=== PATIENT | female | born 1995 | race Hispanic/Latino ===

== ENCOUNTER 2016-10-21 21:34 | Emergency (ER) | payer BC ==
[2016-10-21 21:34] VITALS: BMI 22.3
[2016-10-21 21:41] VITALS: RESP 18; TEMP 98.8
--- NOTE | 2016-10-21 21:55 | ED PDOC ---
Arrival/HPI - General Chief Complaint: Substance Abuse Time Seen by Provider: 10/21/16 21:35 Historian: Patient - History of Present Illness Narrative History of Present Illness (Text): 10/21/16 21:51 Jenny Smith is a 20 year old female who presents to the emergency department via EMS for possible substance abuse. When asked, patient states " she fell asleep waiting for the bus after taking 1 percocet tablet." Currently denies any suicidal or homicidal ideation. Denies any fever, chills, headache, dizziness, chest pain, shortness of breath, nausea, vomiting, diarrhea, or any other complaints at this time. Time/Duration: 1-3 hours Symptom Onset: Gradual Symptom Course: Unchanged Activities at Onset: Light Context: Other (Bus stop ) Past Medical History - Provider Review Nursing Documentation Reviewed: Yes - Cardiac Hx Cardiac Disorders: No Hx Hypertension: No - Pulmonary Hx Respiratory Disorders: No Hx Tuberculosis: No - Neurological Hx Neurological Disorder: No HX Cerebrovascular Accident: No Hx Seizures: No - HEENT Hx HEENT Disorder: No - Renal Hx Renal Disorder: No - Endocrine/Metabolic Hx Endocrine Disorders: No - Hematological/Oncological Hx Blood Disorders: No Hx Cancer: No - Integumentary Hx Dermatological Disorder: No - Musculoskeletal/Rheumatological Hx Musculoskeletal Disorders: No Hx Falls: No - Gastrointestinal Hx Gastrointestinal Disorders: No - Genitourinary/Gynecological Hx Genitourinary Disorders: No Hx Sexually Transmitted Diseases: No - Psychiatric Hx Psychophysiologic Disorder: No Hx Depression: No Hx Emotional Abuse: No Hx Physical Abuse: No Hx Substance Use: Yes (Heroin (opiates)) - Suicidal Assessment Feels Threatened In Home Enviroment: No Family/Social History - Physician Review Nursing Documentation Reviewed: Yes Family/Social History: No Known Family HX Smoking Status: Light Smoker < 10 Cigarettes Daily Hx Alcohol Use: Yes Hx Substance Use: Yes (Heroin (opiates)) Hx Substance Use Treatment: No Allergies/Home Meds Allergies/Adverse Reactions: Allergies No Known Allergies Allergy (Verified 07/04/16 12:34) Review of Systems - Physician Review All systems were reviewed & negative as marked: Yes - Review of Systems Constitutional: Normal. absent: Fatigue, Fevers Respiratory: Normal. absent: SOB, Cough, Sputum Cardiovascular: Normal. absent: Chest Pain, Palpitations Gastrointestinal: Normal. absent: Abdominal Pain, Diarrhea, Nausea, Vomiting Psychiatric: Other (possible substance abuse ). absent: Suicidal Ideation Physical Exam Vital Signs Reviewed: Yes Vital Signs Temp Pulse Resp BP Pulse Ox 10/22/16 00:41 70 18 97/57 L 98 10/21/16 21:38 98.8 F 91 H 18 106/72 100 Temperature: Afebrile Blood Pressure: Normal Pulse: Regular Respiratory Rate: Normal Appearance: Positive for: Well-Appearing, Non-Toxic, Comfortable Pain Distress: None Mental Status: Positive for: Alert and Oriented X 3 - Systems Exam Head: Present: Atraumatic, Normocephalic Pupils: Present: PERRL Extroacular Muscles: Present: EOMI Conjunctiva: Present: Normal Mouth: Present: Moist Mucous Membranes Neck: Present: Normal Range of Motion Respiratory/Chest: Present: Clear to Auscultation, Good Air Exchange. No: Respiratory Distress, Accessory Muscle Use Cardiovascular: Present: Regular Rate and Rhythm, Normal S1, S2. No: Murmurs Abdomen: Present: Normal Bowel Sounds. No: Tenderness, Distention, Peritoneal Signs Upper Extremity: Present: Normal Inspection. No: Cyanosis, Edema Lower Extremity: Present: Normal Inspection. No: Edema Neurological: Present: GCS=15, CN II-XII Intact, Motor Func Grossly Intact, Normal Sensory Function. No: Speech Normal (slurred speech ) Skin: Present: Warm, Dry, Normal Color. No: Rashes Psychiatric: Present: Alert, Oriented x 3. No: Suicidal Ideation, Homicidal Ideation Medical Decision Making ED Course and Treatment: 10/21/16 22:04 Impression: A 20 year old female who presents to the emergency department s/p possible substance abuse. Plan: -- EKG -- Labs, cardiac enzymes -- Drug Screen -- Alcohol level -- IV fludis -- Urinalysis -- Reassess and disposition Progress Notes: 10/21/16 22:08 EKG reviewed by me: NSR @ 97 bpm with sinus arrhythmia. Rightward axis. 10/22/16 02:12 Patient is alert, awake and oriented X3. Patient wants to sign out against medical advice. I advised the patient to stay the course of treatment, but states she is aware of the risks of leaving against medical advice and is adamant in her decision. Advised to present to the emergency department for new/worsening symptoms and follow up with PMD within few days. Leaving Against Medical Advice (AMA): The patient is choosing to leave against medical advice. I have personally explained to the patient that choosing to do so may result in permanent bodily harm or . I have discussed at great length that without further evaluation and monitoring there may be unforeseen circumstances and/or deterioration causing permanent bodily harm or as a result of their choice. The patient is alert, oriented, and shows the mental capacity to make clear decisions regarding the patients health care at this time. The patient continues to wish to leave against medical advice. The patient has been advised that they should return to the emergency room immediately if they change their mind at any time, or if their condition begins to change or worsen in any way.. - Lab Interpretations Microbiology Results: Microbiology Results 10/22/16 00:20 Blood Blood Culture - Preliminary NO GROWTH AFTER 24 HOURS 10/21/16 23:40 Blood Blood Culture - Preliminary NO GROWTH AFTER 24 HOURS Lab Results: 10/21/16 22:25 10/21/16 22:25 Lab Results 10/22/16 00:20: Lactic Acid 1.9 10/21/16 22:50: pO2 195 H, VBG pH 7.32, VBG pCO2 51.0, VBG HCO3 26.3, VBG Total CO2 27.9, VBG O2 Sat (Calc) 99.9 H, VBG Base Excess -0.3 L, VBG Potassium 4.1, Glucose 134 H, Lactate 1.8, FiO2 21.0, Sodium 136.0, Chloride 106.0, Venous Blood Potassium 4.1 10/21/16 22:50: Urine Opiates Screen Negative, Urine Methadone Screen Negative, Ur Barbiturates Screen Negative, Ur Phencyclidine Scrn Negative, Ur Amphetamines Screen Negative, U Benzodiazepines Scrn Positive H, U Oth Cocaine Metabols Negative, U Cannabinoids Screen Positive H 10/21/16 22:50: Urine Color Yellow, Urine Appearance Sl cloudy, Urine pH 6.0, Ur Specific [place] >= 1.030, Urine Protein 100 H, Urine Glucose (UA) Negative, Urine Ketones Negative, Urine Blood Negative, Urine Nitrate Negative, Urine Bilirubin Negative, Urine Urobilinogen 0.2, Ur Leukocyte Esterase Negative, Urine RBC 0 - 2, Urine WBC 2 - 5, Ur Epithelial Cells 3 - 4, Urine Bacteria Small 10/21/16 22:25: Acetaminophen < 10.0 L 10/21/16 22:25: Alcohol, Quantitative < 10 10/21/16 22:25: Sodium 136, Potassium 3.9, Chloride 101, Carbon Dioxide 23, Anion Gap 16, BUN 15, Creatinine 0.6, Est GFR ( Amer) > 60, Est GFR (Non- Af Amer) > 60, Random Glucose 141 H, Calcium 8.9, Phosphorus 5.7 H, Magnesium 1.9, Total Bilirubin 0.2, AST 53 H, ALT 53, Alkaline Phosphatase 83, Lactate Dehydrogenase 621, Total Creatine Kinase 57, Troponin I 0.03 D, Total Protein 6.8, Albumin 3.8, Globulin 3.0, Albumin/Globulin Ratio 1.3 10/21/16 22:25: WBC 19.3 H D, RBC 3.63, Hgb 10.9 L, Hct 33.7 L, MCV 92.8, MCH 30.0, MCHC 32.3, RDW 13.7, Plt Count 655 H, MPV 8.8, Neutrophils % (Manual) 83 H , Band Neutrophils % 4 H, Lymphocytes % (Manual) 7 L, Monocytes % (Manual) 3, Eosinophils % (Manual) 2, Basophils % (Manual) 1, Platelet Evaluation High - RAD Interpretation Radiology Orders: 10/21/16 23:18 CHEST PORTABLE [RAD] Stat - Medication Orders Current Medication Orders: Discontinued Medications Cholecalciferol (Vitamin D) 2,000 iu PO DAILY [facility] Folic Acid (Folic Acid) 1 mg PO DAILY [facility] Heparin Sodium (Porcine) (Heparin) 5,000 units SC Q8H EARL PRN Reason: Protocol Last Admin: 10/22/16 00:23 Dose: 5,000 units Sodium Chloride (Sodium Chloride 0.9%) 1,000 mls @ 80 mls/hr IV .[id number] EARL Last Admin: 10/21/16 22:16 Dose: 80 mls/hr Sodium Chloride (Sodium Chloride 0.9%) 1,000 mls @ 100 mls/hr IV .Q10H EARL Stop: 10/26/16 03:44 Last Admin: 10/22/16 00:18 Dose: 100 mls/hr Piperacillin Sod/Tazobactam Sod (Zosyn 3.375 In Ns 100ml) 100 mls @ 200 mls/hr IVPB STAT STA PRN Reason: Protocol Stop: 10/22/16 00:35 Last Admin: 10/22/16 00:25 Dose: 200 mls/hr Naloxone HCl (Narcan) 0.4 mg IVP STAT STA Stop: 10/21/16 22:06 Last Admin: 10/21/16 22:30 Dose: Not Given Non-Admin Reason: Patient Refused Nicotine (Nicoderm Cq) 1 patch TD DAILY EAR[facility] Pantoprazole Sodium (Protonix Ec Tab) 40 mg PO 629 EARL Thiamine HCl (Vitamin B1 Tab) 100 mg PO DAILY [facility]AR[facility] - Scribe Statement The provider has reviewed the documentation as recorded by the Katarinaibe Syd Morrell Provider Attestation: All medical record entries made by the Katarinaibjos were at my direction and personally dictated by me. I have reviewed the chart and agree that the record accurately reflects my personal performance of the history, physical exam, medical decision making, and the department course for this patient. I have also personally directed, reviewed, and agree with the discharge instructions and disposition. Disposition/Present on Arrival - Present on Arrival Any Indicators Present on Arrival: No History of DVT/PE: No History of Uncontrolled Diabetes: No Urinary Catheter: No History of Decub. Ulcer: No History Surgical Site Infection Following: None - Disposition Have Diagnosis and Disposition been Completed?: Yes Diagnosis: Substance abuse, Sepsis Disposition: AGAINST MEDICAL ADVICE Disposition Time: 02:15 Condition: FAIR Discharge Instructions (ExitCare): Sepsis (ED) Referrals: Riley Justice MD [Primary Care Provider] - Follow up with primary
[2016-10-21] MEDS ORDERED: Sodium Chloride 0.9% 1,000 ML IV SCH ×2 (22:00→23:45)
[2016-10-21] MEDS: Naloxone 0.4 mg/ml Inj (Adult) IVP STA ×2 (22:16→22:30)
[2016-10-21 22:37] LABS: HEMATOCRIT 33.7 % (36.0-48.0); MEAN CELL VOLUME 92.8 fL (80.0-105.0); MEAN CORPUSCULAR HGB CONC 32.3 g/dl (31.0-37.0); MEAN PLATELET VOLUME 8.8 fl (7.0-11.0); PLATELET COUNT 655 10^3/uL (120.0-450.0); RED CELL DISTRIBUTION WIDTH 13.7 % (11.5-14.5); WHITE BLOOD COUNT 19.3 10^3/ul (4.5-11.0)
[2016-10-21 22:41] LABS: ADD MANUAL DIFF? YES
[2016-10-21 22:50] LABS: ALB/GLOB RATIO 1.3 (1.1-1.8); ALKALINE PHOSPHATASE 83 U/L (38-133); ALT/SGPT 53 U/L (7-56); AST/SGOT 53 U/L (15-39); BILIRUBIN,TOTAL 0.2 mg/dL (0.2-1.3); BLOOD UREA NITROGEN 15 mg/dL (7-21); CALCIUM 8.9 mg/dL (8.4-10.5); CARBON DIOXIDE 23 mmol/L (21-33); CHLORIDE 101 mmol/L (98-107); GFR AFRICAN-AMERICAN > 60; GLUCOSE,RANDOM 141 mg/dL (70-110); MAGNESIUM 1.9 mg/dL (1.7-2.2); PHOSPHOROUS 5.7 mg/dL (2.5-4.5); POTASSIUM 3.9 mmol/L (3.6-5.0); SODIUM 136 mmol/L (132-148); TOTAL PROTEIN 6.8 g/dL (5.8-8.3)
[2016-10-21 23:00] LABS: TROPONIN I 0.03 ng/mL
[2016-10-21 23:15] LABS: VENOUS BLOOD GAS BASE EXCESS -0.3 mmol/L (0.0-2.0); VENOUS BLOOD PH 7.32 (7.32-7.43)
[2016-10-21 23:47] LABS: URINE BILIRUBIN NEGATIVE (NEGATIVE); URINE BLOOD NEGATIVE (NEGATIVE); URINE GLUCOSE (UA) NEGATIVE (NEGATIVE); URINE KETONE NEGATIVE (NEGATIVE); URINE LEUKOCYTE ESTERASE NEGATIVE Leu/uL (NEGATIVE); URINE PROTEIN 100 mg/dL (<30 mg/dL); URINE UROBILINOGEN 0.2 E.U./dL (<1 E.U./dL)
[2016-10-21 23:55] LABS: URINE APPEARANCE SL CLOUDY (CLEAR); URINE COLOR YELLOW (YELLOW)
[2016-10-22 00:05] LABS: URINE BACTERIA SMALL (NEG); URINE RBC 0 - 2 /hpf (0-2)
[2016-10-22] MEDS ORDERED: Piperacillin/Tazobact 3.375 gm 100 ML IVPB STA (00:06)
[2016-10-22 00:27] LABS: BAND 4 % (0-2); NEUTROPHIL 83 % (50.0-70.0)
[2016-10-22 00:28] LABS: BASOPHIL 1 % (0.0-1.0); EOSINOPHIL 2 % (0.0-3.0); PLATELET ESTIMATE HIGH (NORMAL)
[2016-10-22 00:45] VITALS: BP 97/57; PULSE 70; O2SAT 98
[2016-10-22] MEDS ORDERED: Pantoprazole 40 mg EC Tab PO SCH (06:30)
--- NOTE | 2016-10-22 08:51 | RAD ---
HISTORY: weak COMPARISON: No prior. FINDINGS: LUNGS: No active pulmonary disease. PLEURA: No significant pleural effusion identified, no pneumothorax apparent. CARDIOVASCULAR: Normal. OSSEOUS STRUCTURES: No significant abnormalities. VISUALIZED UPPER ABDOMEN: Normal. OTHER FINDINGS: None. IMPRESSION: No active disease.
--- NOTE | 2016-10-22 22:46 | CARD ---
APPROVED REPORT EKG Measurement Heart [id number] <Conclusion> Normal sinus rhythm with sinus arrhythmia Rightward axis Borderline ECG
== END 2016-10-22 01:20 | disposition left against medical advice (07) ==
LOC: ED 21:34
DX: F19.10 Other psychoactive substance abuse, uncomplicated (principal); A41.9 Sepsis, unspecified organism
CPT/HCPCS: 71010; 80053; 81001; 82550; 82803; 83605; 83615; 83735; 84100; 84484; 85025; 87040; 93005; 96372; 99284; G0480; J1644; J2543; J7040

== ENCOUNTER 2017-09-09 23:43 | Emergency (ER) | payer BC ==
[2017-09-09 23:44] VITALS: BMI 22.3
[2017-09-10] MEDS ORDERED: Oxycodone/Acetaminophen 5/325 mg Tab PO STA (00:35)
--- NOTE | 2017-09-10 00:39 | ED PDOC ---
Arrival/HPI - General Historian: Patient <Maria E Chew A - Last Filed: 09/10/17 00:36> <Abdulaziz Petty - Last Filed: 09/10/17 01:11> - General Chief Complaint: Dental Pain Time Seen by Provider: 09/10/17 00:34 - History of Present Illness Narrative History of Present Illness (Text): 09/10/17 00:36 21yo female with no PMHx who present to ED with right sided upper toothache with facial swelling. Patient notes that toothache started this morning and swelling started this evening. States she had tooth extraction on the left side few week ago and took a left over oxycodone and penicillin from the procedure today with some relieve. she denies fever, chills, trauma. States she plan to see her Dentist in the morning. (Maria E Chew) Past Medical History - Provider Review Nursing Documentation Reviewed: Yes - Infectious Disease Hx of Infectious Diseases: None - Cardiac Hx Cardiac Disorders: No Hx Hypertension: No - Pulmonary Hx Respiratory Disorders: No Hx Tuberculosis: No - Neurological Hx Neurological Disorder: No HX Cerebrovascular Accident: No Hx Seizures: No - HEENT Hx HEENT Disorder: No - Renal Hx Renal Disorder: No - Endocrine/Metabolic Hx Endocrine Disorders: No - Hematological/Oncological Hx Blood Disorders: No Hx Cancer: No - Integumentary Hx Dermatological Disorder: No - Musculoskeletal/Rheumatological Hx Musculoskeletal Disorders: No Hx Falls: No - Gastrointestinal Hx Gastrointestinal Disorders: No - Genitourinary/Gynecological Hx Genitourinary Disorders: No Hx Sexually Transmitted Diseases: No - Psychiatric Hx Psychophysiologic Disorder: No Hx Depression: No Hx Emotional Abuse: No Hx Physical Abuse: No Hx Substance Use: Yes (Heroin (opiates)) - Suicidal Assessment Feels Threatened In Home Enviroment: No <Maria E Chew A - Last Filed: 09/10/17 00:36> Family/Social History - Physician Review Nursing Documentation Reviewed: Yes Family/Social History: Unknown Family HX Smoking Status: Light Smoker < 10 Cigarettes Daily Hx Alcohol Use: Yes Hx Substance Use: Yes (Heroin (opiates)) Hx Substance Use Treatment: No <Maria E Chew A - Last Filed: 09/10/17 00:36> Allergies/Home Meds <Maria E Chew A - Last Filed: 09/10/17 00:36> <Abdulaziz Petty - Last Filed: 09/10/17 01:11> Allergies/Adverse Reactions: Allergies No Known Allergies Allergy (Verified 07/04/16 12:34) Review of Systems - Physician Review All systems were reviewed & negative as marked: Yes - Review of Systems Constitutional: Normal Eyes: Normal ENT: Other (Toothache) Respiratory: Normal Cardiovascular: Normal Gastrointestinal: Normal Genitourinary Female: Normal Musculoskeletal: Normal Skin: Normal Neurological: Normal Endocrine: Normal Hemo/Lymphatic: Normal Psychiatric: Normal <Maria E Chew A - Last Filed: 09/10/17 00:36> Physical Exam Vital Signs Reviewed: Yes Temperature: Afebrile Blood Pressure: Normal Pulse: Regular Respiratory Rate: Normal Appearance: Positive for: Well-Appearing, Non-Toxic, Comfortable Pain Distress: None Mental Status: Positive for: Alert and Oriented X 3 - Systems Exam Head: Present: Atraumatic, Normocephalic Pupils: Present: PERRL Extroacular Muscles: Present: EOMI Conjunctiva: Present: Normal Mouth: Present: Moist Mucous Membranes. No: Normal Teeth (Poor dentition in general. Right sided upper lateral gum swelling noted with mild overlaying cheek swelling.) Neck: Present: Normal Range of Motion Respiratory/Chest: Present: Clear to Auscultation, Good Air Exchange. No: Respiratory Distress, Accessory Muscle Use Cardiovascular: Present: Regular Rate and Rhythm, Normal S1, S2. No: Murmurs Abdomen: No: Tenderness, Distention, Peritoneal Signs Back: Present: Normal Inspection Upper Extremity: Present: Normal Inspection. No: Cyanosis, Edema Lower Extremity: Present: Normal Inspection. No: Edema Neurological: Present: GCS=15, CN II-XII Intact, Speech Normal Skin: Present: Warm, Dry, Normal Color. No: Rashes Psychiatric: Present: Alert, Oriented x 3, Normal Insight, Normal Concentration <Maria E Chew A - Last Filed: 09/10/17 00:36> - Medication Orders Current Medication Orders: Discontinued Medications Amoxicillin (Amoxil 500 Mg Cap) 500 mg PO STAT STA PRN Reason: Protocol Stop: 09/10/17 00:35 Last Admin: 09/10/17 00:57 Dose: 500 mg Ibuprofen (Motrin Tab) 600 mg PO STAT STA Stop: 09/10/17 00:36 Last Admin: 09/10/17 00:59 Dose: 600 mg MAR Pain/Vitals Document 09/10/17 00:59 SS (Rec: 09/10/17 00:59 [id number]) Pain Reassessment Is This A Pain ReAssessment? No Sleep Is patient sleeping during reassessment? No Presence of Pain Presence of Pain Yes Pain Scale Used Pain Scale Used Numeric Location Left, Right or Bilateral Right Upper or Lower Lower Pain Location Body Site Face Oxycodone/Acetaminophen (Percocet 5/325 Mg Tab) 1 tab PO STAT STA Stop: 09/10/17 00:36 Last Admin: 09/10/17 00:59 Dose: 1 tab MAR Pain Assessment Document 09/10/17 00:59 SS (Rec: 09/10/17 00:59 SS [id number]) Pain Reassessment Is this a pain reassessment? No Sleep Is patient sleeping during reassessment? No Presence of Pain Presence of Pain Yes Pain Scale Used Pain Scale Used Numeric Location Left, Right or Bilateral Right Upper or Lower Lower Pain Location Body Site Face - PA / [employer] / Resident Statement / has reviewed & agrees with the documentation as recorded. <Abdulaziz Petty - Last Filed: 09/10/17 01:11> Disposition/Present on Arrival - Present on Arrival Any Indicators Present on Arrival: No History of DVT/PE: No History of Uncontrolled Diabetes: No Urinary Catheter: No History of Decub. Ulcer: No History Surgical Site Infection Following: None - Disposition Have Diagnosis and Disposition been Completed?: Yes Disposition Time: 00:40 Patient Plan: Discharge <Maria E Chew - Last Filed: 09/10/17 00:36> <Abdulaziz Petty - Last Filed: 09/10/17 01:11> - Disposition Diagnosis: Dental abscess Disposition: HOME/ ROUTINE Condition: STABLE Discharge Instructions (ExitCare): Tooth Abscess (DC) Additional Instructions: Follow up with your Dentist Return to ED for any new or worsening symptoms Prescriptions: Amoxicillin 875 mg PO TID #21 tab Ibuprofen [Motrin Tab] 600 mg PO Q6 #15 tab traMADol [Ultram] 50 mg PO TID #10 tab Referrals: [facility] [Outside] - Follow up with primary Forms: [employer] (Faroese)
[2017-09-10 03:48] VITALS: PULSE 78; RESP 20; TEMP 98.8; O2SAT 98
== END 2017-09-10 04:01 | disposition home or self-care (01) ==
LOC: ED 23:43
DX: K04.7 Periapical abscess without sinus (principal); F17.210 Nicotine dependence, cigarettes, uncomplicated

== ENCOUNTER 2018-02-11 11:16 | Emergency (ER) | payer BC, MEDICAID ==
[2018-02-11 12:01] VITALS: BMI 21.1
[2018-02-11 12:04] VITALS: RESP 18; TEMP 98.5
--- NOTE | 2018-02-11 13:07 | ED PDOC ---
Arrival/HPI - General Chief Complaint: Dental Pain Time Seen by Provider: 02/11/18 12:24 Historian: Patient - History of Present Illness Narrative History of Present Illness (Text): 02/11/18 13:35 22yr old female presents today with left sided dental pain and swelling. pt with hx of poor dentition c/o pain and swelling to the left lower molars that started upon awakening today. pt denies fever/chills. no trismus or drooling. no dizziness or weakness. no medications have been taken at home. 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 no other complaints. Severity Level: Mild Past Medical History - Provider Review Nursing Documentation Reviewed: Yes - Travel History Have you recently traveled outside [place] w/in the past 3 mons?: No - Infectious Disease Hx of Infectious Diseases: None - Cardiac Hx Cardiac Disorders: No Hx Hypertension: No - Pulmonary Hx Respiratory Disorders: No Hx Tuberculosis: No - Neurological Hx Neurological Disorder: No HX Cerebrovascular Accident: No Hx Seizures: No - HEENT Hx HEENT Disorder: No - Renal Hx Renal Disorder: No - Endocrine/Metabolic Hx Endocrine Disorders: No - Hematological/Oncological Hx Blood Disorders: No Hx Cancer: No Hx Hepatitis A: Yes Hx Hepatitis C: Yes - Integumentary Hx Dermatological Disorder: No - Musculoskeletal/Rheumatological Hx Musculoskeletal Disorders: No Hx Falls: No - Gastrointestinal Hx Gastrointestinal Disorders: No - Genitourinary/Gynecological Hx Sexually Transmitted Diseases: No Other/Comment: genital herpes - Psychiatric Hx Psychophysiologic Disorder: No Hx Depression: No Hx Emotional Abuse: No Hx Physical Abuse: No Hx Substance Use: Yes (recovering) Other/Comment: substanc eabuse - recovery - Surgical History Other/Comment: - Suicidal Assessment Feels Threatened In Home Enviroment: No Family/Social History - Physician Review Nursing Documentation Reviewed: Yes Family/Social History: Unknown Family HX Smoking Status: Light Smoker < 10 Cigarettes Daily Hx Alcohol Use: Yes Hx Substance Use: Yes (recovering) Hx Substance Use Treatment: No Allergies/Home Meds Allergies/Adverse Reactions: Allergies No Known Allergies Allergy (Verified 07/04/16 12:34) Home Medications: Home Meds Medication Instructions Recorded Confirmed Buprenorphine HCl/Naloxone HCl 16 mg SL DAILY 02/11/18 02/11/18 [Suboxone 8 mg-2 mg Sl Film] Review of Systems - Review of Systems Constitutional: absent: Fatigue, Fevers ENT: Other (dental pain) Respiratory: absent: SOB, Cough Cardiovascular: absent: Chest Pain, Palpitations Gastrointestinal: absent: Abdominal Pain, Nausea, Vomiting Genitourinary Female: absent: Dysuria Musculoskeletal: absent: Arthralgias Skin: absent: Rash, Pruritis Neurological: absent: Headache, Dizziness Psychiatric: absent: Anxiety, Depression Physical Exam Vital Signs Reviewed: Yes Vital Signs Temp Pulse Resp BP Pulse Ox 02/11/18 12:03 98.5 F 72 18 118/90 100 Temperature: Afebrile Blood Pressure: Normal Pulse: Regular Respiratory Rate: Normal Appearance: Positive for: Well-Appearing, Non-Toxic, Comfortable Pain Distress: None Mental Status: Positive for: Alert and Oriented X 3 - Systems Exam Head: Present: Other ( swelling noted to left lower cheek) Conjunctiva: Present: Normal Ears: Present: Normal, NORMAL TM Mouth: Present: Moist Mucous Membranes, Normal Lips, Normal Tounge. No: Drooling, Trismus, Normal Teeth (multiple dental fracture, + left lower dental tenderness, + swelling noted to left lower cheek) Pharnyx: Present: Normal. No: ERYTHEMA, EXUDATE, TONSILS ENLARGED, Peritonsilar Swelling, Uvular Deviation, Muffled/Hoarse Voice, Soft Palate/Uvular Edema Nose (External): Present: Atraumatic Nose (Internal): Present: Normal Inspection Neck: Present: Normal Range of Motion, Trachea Midline. No: Lymphadenopathy Respiratory/Chest: Present: Clear to Auscultation, Good Air Exchange. No: Respiratory Distress, Accessory Muscle Use Cardiovascular: Present: Regular Rate and Rhythm, Normal S1, S2. No: Murmurs Neurological: Present: GCS=15, Speech Normal Skin: Present: Warm, Dry, Normal Color. No: Rashes Psychiatric: Present: Alert, Oriented x 3 Medical Decision Making ED Course and Treatment: 02/11/18 15:04 Patient is nontoxic well-appearing in no distress with stable vital signs No trismus or drooling, moist mucous membranes motrin clindamycin po I advised follow-up with the dentist within the next 2 days. I advised immediate return is symptoms worsen persist or if new concerning symptoms develop Patient verbalizes understanding of discharge instructions and need for imm ediate followup. Impression: Toothache, dental abscess Motrin every 6 hours as needed for pain Clindamycin 1 tablet 3 times daily 7 days Follow-up with the dentist within the next 2 days Follow up with the primary care physician within the next 2 days Return immediately if symptoms worsen persist or if new concerning symptoms develop: high fevers, increasing pain, swelling, or if any other concerning symptoms develop. [facility] [address] [phone] [place] [address] [phone] Disposition/Present on Arrival - Present on Arrival Any Indicators Present on Arrival: No History of DVT/PE: No History of Uncontrolled Diabetes: No Urinary Catheter: No History of Decub. Ulcer: No History Surgical Site Infection Following: None - Disposition Have Diagnosis and Disposition been Completed?: Yes Diagnosis: Dental abscess Disposition: HOME/ ROUTINE Disposition Time: 12:30 Patient Plan: Discharge Condition: GOOD Discharge Instructions (ExitCare): Tooth Abscess (DC) Additional Instructions: Motrin every 6 hours as needed for pain Clindamycin 1 tablet 3 times daily 7 days Follow-up with the dentist within the next 2 days Follow up with the primary care physician within the next 2 days Return immediately if symptoms worsen persist or if new concerning symptoms develop: high fevers, increasing pain, swelling, or if any other concerning symptoms develop. [address] [phone] [place] [address] [phone] Prescriptions: Clindamycin [Cleocin] 300 mg PO TID #21 cap Ibuprofen [Motrin] 600 mg PO Q6H PRN #20 tab PRN Reason: pain/fever reduction Referrals: Abdullahi Barney DMD [Staff Provider] - Follow up with primary Rashid Valdes DMD [Non-Staff] - Follow up with primary Forms: [employer] (Japanese), WORK NOTE
[2018-02-11 14:04] VITALS: BP 118/76; PULSE 78; O2SAT 100
== END 2018-02-11 13:55 | disposition home or self-care (01) ==
LOC: ED 11:16
DX: K04.7 Periapical abscess without sinus (principal)

== ENCOUNTER 2018-05-12 15:06 | Observation (INO) | payer MEDICAID, OTHER ==
[2018-05-12 15:16] VITALS: BMI 21.9
--- NOTE | 2018-05-12 15:58 | ED PDOC ---
Arrival/HPI - General Chief Complaint: Abdominal Pain Time Seen by Provider: 05/12/18 15:30 Historian: Patient - History of Present Illness Narrative History of Present Illness (Text): 05/12/18 16:03 A 22 year old female, whose past medical history includes pancreatitis, presents to the emergency department complaining of abdominal pain. Patient reports she has been in recovery for her pancreatitis. Also she has been 100 days sober. Since recovery, patient has been experiencing abdominal pain, and has waited 3 months for pain to absolve, however has had no relief and states pain is now unbearable. Patient denies any fever, vomiting, back pain, or any other complaints at this time. Mentions she smokes weed. Has no surgical history. No PMD Past Medical History - Provider Review Nursing Documentation Reviewed: Yes - Infectious Disease Hx of Infectious Diseases: None - Cardiac Hx Cardiac Disorders: No Hx Hypertension: No - Pulmonary Hx Respiratory Disorders: No Hx Tuberculosis: No - Neurological Hx Neurological Disorder: No HX Cerebrovascular Accident: No Hx Seizures: No - HEENT Hx HEENT Disorder: No - Renal Hx Renal Disorder: No - Endocrine/Metabolic Hx Endocrine Disorders: No - Hematological/Oncological Hx Blood Disorders: No Hx Cancer: No Hx Hepatitis A: Yes Hx Hepatitis C: Yes - Integumentary Hx Dermatological Disorder: No - Musculoskeletal/Rheumatological Hx Musculoskeletal Disorders: No Hx Falls: No - Gastrointestinal Hx Gastrointestinal Disorders: No Other/Comment: Pancreatitis - Genitourinary/Gynecological Hx Sexually Transmitted Diseases: No Other/Comment: genital herpes - Psychiatric Hx Psychophysiologic Disorder: No Hx Depression: No Hx Emotional Abuse: No Hx Physical Abuse: No Hx Substance Use: Yes (Marijuana) Other/Comment: substanc eabuse - recovery - Surgical History Other/Comment: - Suicidal Assessment Feels Threatened In Home Enviroment: No Family/Social History - Physician Review Nursing Documentation Reviewed: Yes Family/Social History: No Known Family HX Smoking Status: Light Smoker < 10 Cigarettes Daily Hx Alcohol Use: Yes Frequency of alcohol use: Socially Hx Substance Use: Yes (Marijuana) Hx Substance Use Treatment: No Allergies/Home Meds Allergies/Adverse Reactions: Allergies No Known Allergies Allergy (Verified 07/04/16 12:34) Home Medications: Home Meds Medication Instructions Recorded Confirmed Buprenorphine HCl/Naloxone HCl 16 mg SL DAILY 02/11/18 02/11/18 [Suboxone 8 mg-2 mg Sl Film] Review of Systems - Physician Review All systems were reviewed & negative as marked: Yes - Review of Systems Constitutional: Other (weakness). absent: Fevers Gastrointestinal: Abdominal Pain (burning sensation). absent: Vomiting Musculoskeletal: absent: Back Pain Physical Exam - Physical Exam Narrative Physical Exam (Text): Gen: NAD, cooperative, well appearing, non-toxic. Head: NCAT. HEENT: EYES: PERRL, EOMI, conjunctiva clear, MOUTH: dry MM and pink, posterior pharynx without erythema or exudate, uvula midline. CV: (+) S1S2, RRR, no M/G/R LUNGS: CTA B/L, No W/R/R, good air movement Abd: mild tenderness to epigastric region, NTTP, no guarding, rebound or rigidity, hyperactive bowel sounds. Neuro: AAO x 3, GCS 15, CN 2-12 intact, motor and sensory grossly intact, 5/5 muscle strength B/L UE's and LE's. ext: no cyanosis or edema Vital Signs Reviewed: Yes Vital Signs Temp Pulse Resp BP Pulse Ox 05/12/18 15:15 98.4 F 73 18 102/69 97 Temperature: Afebrile Blood Pressure: Normal Pulse: Regular Respiratory Rate: Normal Appearance: Positive for: Well-Appearing, Non-Toxic, Comfortable Pain Distress: None Mental Status: Positive for: Alert and Oriented X 3 Medical Decision Making ED Course and Treatment: 05/12/18 16:04 Impression: 22 year old female with abdominal pain. Plan: -- Labs -- Urinalysis -- POC Urine Test -- Reassess and disposition Progress Notes: 05/12/18 16:06 Upon blood being drawn, patient became diaphoretic, and became sinus tod at the high 30s. Patient denies any chest pain/shortness of breath. 05/12/18 17:36 Blood pressure currently 97/72 and heart rate improved to 65 BPM. 05/12/18 17:[address] Wilkerson, who accepts patient to be placed under admission in tele-obs. Chest X-ray is negative. - Scribe Statement The provider has reviewed the documentation as recorded by the Candice Douglas Provider Scribe Attestation: All medical record entries made by the Scribe were at my direction and personally dictated by me. I have reviewed the chart and agree that the record accurately reflects my personal performance of the history, physical exam, medical decision making, and the department course for this patient. I have also personally directed, reviewed, and agree with the discharge instructions and disposition. Disposition/Present on Arrival - Present on Arrival Any Indicators Present on Arrival: No History of DVT/PE: No History of Uncontrolled Diabetes: No Urinary Catheter: No History of Decub. Ulcer: No History Surgical Site Infection Following: None - Disposition Have Diagnosis and Disposition been Completed?: Yes Diagnosis: Symptomatic bradycardia Disposition: HOSPITALIZED Disposition Time: 17:55 Patient Plan: Admission, Telemetry Patient Problems: Current Active Problems Problem Status Onset Symptomatic bradycardia Acute Condition: STABLE
[2018-05-12] MEDS ORDERED: Sodium Chloride 0.9% 1,000 ML IV STA (16:07)
[2018-05-12 16:33] LABS: BASO # 0.02 K/mm3 (0.0-2.0); BASO % 0.2 % (0.0-3.0); EOS # 0.2 (0.0-0.7); GRAN # 4.67 (1.4-6.5); GRAN % 54.1 % (50.0-68.0); HEMOGLOBIN 12.3 g/dL (12.0-16.0); LYMPH # 3.5 (1.2-3.4); LYMPH % 40.1 % (22.0-35.0); MEAN CELL VOLUME 85.7 fl (80.0-105.0); MEAN CORPUSCULAR HEMOGLOBIN 28.3 pg (25.0-35.0); MEAN CORPUSCULAR HGB CONC 33.1 g/dl (31.0-37.0); MEAN PLATELET VOLUME 9.2 fl (7.0-11.0); MONO # 0.3 (0.1-0.6); MONO % 3.6 % (1.0-6.0); RBC 4.34 10^6/uL (3.5-6.1); RED CELL DISTRIBUTION WIDTH 14.1 % (11.5-14.5); WHITE BLOOD COUNT 8.6 10^3/uL (4.5-11.0)
[2018-05-12 16:44] LABS: URINE BILIRUBIN NEGATIVE (NEGATIVE); URINE BLOOD TRACE-INTACT (NEGATIVE); URINE GLUCOSE (UA) NEGATIVE (NEGATIVE); URINE LEUKOCYTE ESTERASE NEGATIVE Leu/uL (NEGATIVE); URINE PROTEIN NEGATIVE mg/dL (<30 mg/dL); URINE UROBILINOGEN 0.2 E.U./dL (<1 E.U./dL)
[2018-05-12 16:46] LABS: URINE APPEARANCE CLEAR (CLEAR); URINE COLOR YELLOW (YELLOW)
[2018-05-12 17:05] LABS: URINE EPITHELIAL CELLS MANY /hpf (0-5); URINE RBC 0 - 2 /hpf (0-2); URINE WBC 0 - 2 /hpf (0-6)
[2018-05-12 17:06] LABS: URINE BACTERIA TRACE /hpf
[2018-05-12 17:08] LABS: ALB/GLOB RATIO 1.4 (1.1-1.8); ALBUMIN 4.1 g/dL (3.0-4.8); ALT/SGPT 50 U/L (7-56); AST/SGOT 36 U/L (14-36); BLOOD UREA NITROGEN 6 mg/dL (7-21); CALCIUM 9.3 mg/dL (8.4-10.5); GFR NON-AFRICAN AMERICAN > 60; LIPASE 11 U/L (23-300)
[2018-05-12 17:09] LABS: ACETAMINOPHEN < 10.0 ug/ml (10.0-20.0); SALICYLATE < 1 mg/dL (2.0-20.0)
[2018-05-12 17:21] LABS: BENZODIAZEPINES, UR NEGATIVE (NEGATIVE)
[2018-05-12 17:23] LABS: BARBITURATES, UR NEGATIVE (NEGATIVE); OPIATES, UR NEGATIVE (NEGATIVE); PHENCYCLIDINE, UR NEGATIVE (NEGATIVE)
[2018-05-12 17:30] LABS: TROPONIN I < 0.01 ng/mL
[2018-05-12] MEDS: Sodium Chloride 0.9% 1,000 ML IV SCH (21:26)
--- NOTE | 2018-05-12 22:00 | CP.PCM.HP ---
<Meaghan Lincoln - Last Filed: 05/13/18 00:25> Meds Allergies/Adverse Reactions: Allergies Allergy/AdvReac Type Severity Reaction Status Date / Time No Known Allergies Allergy Verified 07/04/16 12:34 Results - Vital Signs Recent Vital Signs: Last Vital Signs Temp 98.4 F 05/12/18 15:15 Pulse 52 L 05/12/18 20:23 Resp 16 05/12/18 20:23 BP 107/65 05/12/18 20:00 Pulse Ox 100 05/12/18 20:23 - Labs Result Diagrams: 05/12/18 16:25 05/12/18 16:25 Labs: Laboratory Results - last 24 hr 05/12/18 05/12/18 05/12/18 16:12 16:25 16:25 WBC 8.6 RBC 4.34 Hgb 12.3 Hct 37.2 MCV 85.7 MCH 28.3 MCHC 33.1 RDW 14.1 Plt Count 277 MPV 9.2 Gran % 54.1 Lymph % (Auto) 40.1 H [place] % (Auto) 3.6 Eos % (Auto) 2.0 Baso % (Auto) 0.2 Gran # 4.67 Lymph # (Auto) 3.5 H [place] # (Auto) 0.3 Eos # (Auto) 0.2 Baso # (Auto) 0.02 Sodium Potassium Chloride Carbon Dioxide Anion Gap BUN Creatinine Est GFR ( Amer) Est GFR (Non-Af Amer) POC Glucose (mg/dL) 94 Random Glucose Calcium Phosphorus Magnesium Total Bilirubin AST ALT Alkaline Phosphatase Troponin I Total Protein Albumin Globulin Albumin/Globulin Ratio Lipase Urine Color Yellow Urine Appearance Clear Urine pH 7.0 Ur Specific Cam[place] 1.020 Urine Protein Negative Urine Glucose (UA) Negative Urine Ketones Negative Urine Blood Trace-intact H Urine Nitrate Negative Urine Bilirubin Negative Urine Urobilinogen 0.2 Ur Leukocyte Esterase Negative Urine RBC 0 - 2 Urine WBC 0 - 2 Ur Epithelial Cells Many H Urine Bacteria Trace Salicylates Urine Opiates Screen Urine Methadone Screen Acetaminophen Ur Barbiturates Screen Ur Phencyclidine Scrn Ur Amphetamines Screen U Benzodiazepines Scrn U Oth Cocaine Metabols U Cannabinoids Screen Alcohol, Quantitative 05/12/18 05/12/18 05/12/18 16:25 16:25 16:25 WBC RBC Hgb Hct MCV MCH MCHC RDW Plt Count MPV Gran % Lymph % (Auto) [place] % (Auto) Eos % (Auto) Baso % (Auto) Gran # Lymph # (Auto) [place] # (Auto) Eos # (Auto) Baso # (Auto) Sodium 138 Potassium 4.5 Chloride 108 H Carbon Dioxide 25 Anion Gap 10 BUN 6 L Creatinine 0.4 L Est GFR ( Amer) > 60 Est GFR (Non-Af Amer) > 60 POC Glucose (mg/dL) Random Glucose 109 Calcium 9.3 Phosphorus Magnesium 2.0 Total Bilirubin 0.3 AST 36 ALT 50 Alkaline Phosphatase 89 Troponin I < 0.01 D Total Protein 7.2 Albumin 4.1 Globulin 3.0 Albumin/Globulin Ratio 1.4 Lipase 11 L Urine Color Urine Appearance Urine pH Ur Specific [place] Urine Protein Urine Glucose (UA) Urine Ketones Urine Blood Urine Nitrate Urine Bilirubin Urine Urobilinogen Ur Leukocyte Esterase Urine RBC Urine WBC Ur Epithelial Cells Urine Bacteria Salicylates < 1 L Urine Opiates Screen Negative Urine Methadone Screen Negative Acetaminophen < 10.0 L Ur Barbiturates Screen Negative Ur Phencyclidine Scrn Negative Ur Amphetamines Screen Negative U Benzodiazepines Scrn Negative U Oth Cocaine Metabols Negative U Cannabinoids Screen Positive H Alcohol, Quantitative 05/12/18 05/12/18 16:25 22:37 WBC RBC Hgb Hct MCV MCH MCHC RDW Plt Count MPV Gran % Lymph % (Auto) [place] % (Auto) Eos % (Auto) Baso % (Auto) Gran # Lymph # (Auto) [place] # (Auto) Eos # (Auto) Baso # (Auto) Sodium Potassium Chloride Carbon Dioxide Anion Gap BUN Creatinine Est GFR ( Amer) Est GFR (Non-Af Amer) POC Glucose (mg/dL) Random Glucose Calcium Phosphorus 3.3 Magnesium 1.9 Total Bilirubin AST ALT Alkaline Phosphatase Troponin I < 0.01 Total Protein Albumin Globulin Albumin/Globulin Ratio Lipase Urine Color Urine Appearance Urine pH Ur Specific [place] Urine Protein Urine Glucose (UA) Urine Ketones Urine Blood Urine Nitrate Urine Bilirubin Urine Urobilinogen Ur Leukocyte Esterase Urine RBC Urine WBC Ur Epithelial Cells Urine Bacteria Salicylates Urine Opiates Screen Urine Methadone Screen Acetaminophen Ur Barbiturates Screen Ur Phencyclidine Scrn Ur Amphetamines Screen U Benzodiazepines Scrn U Oth Cocaine Metabols U Cannabinoids Screen Alcohol, Quantitative < 10 Attending/Attestation - Attestation I have personally seen and examined this patient.: Yes I have fully participated in the care of the patient.: Yes I have reviewed all pertinent clinical information: Yes Notes (Text): 05/13/18 00:27 22 year old woman of . [facility] #16. Patient was seen when she was in . Medical record was reviewed. Agree with history, physical examination, assessment and plan with some inclusion and exclusion. This 22 year old woman is admitted with CC: Abdominal pain. Nausea. Symptomtic bradycardia. Urine -blood trace. Urine -Cnnabinoids + ve. PMH: Hepatitis A Hepatitis C IVDA. Anxiety. Depression. Suicidal thoughts history, not presently thinking. Cellulitis. Sepsis. Septic arthritis-left elbow. Dental abscess. Substance abuse.-Heroine. ETOH abuse. History alcohlic seizure. Tobacco dependence. Painful menstruation. I & D left elbow abscess. History of anemia. History borderline diabetes mellitus. History GERD. History chronic pancreatitis. History D&C. HOME MEDS: Thiamine 100 mg PO daily. Motrin 600 mg PO Q6H prn Folic acid mg PO daily Cleocin 300 mg PO TID Soboxone / Naloxone 8mg -2 mg SL Daily. Plan: As per orders, CT ABD/P, cardiology,GI consult. <Claudia Goodwin - Last Filed: 05/13/18 02:24> History of Present Illness - History of Present Illness History of Present Illness: Claudia Goodwin, PGY-1, Internal Medicine History and Physical for Dr. Lincoln 22 year old female with past medical history of pancreatitis 1 year ago, resolved hepatitis A, resolved hepatitis C, history of heroin abuse, history of tobacco abuse, history of alcohol abuse, current marijuana use presents with burning substernal pain that has worsened for the past 3 months that is exacerbated with food intake and improved with marijuana. Pain started 1 year ago after patient had an episode of pancreatitis after drinking 1/5 of vodka daily for 4 months. Patient reports nausea but has had no episodes of vomiting. Patient has had a 10 pound weight loss in the past month and has had a loss of appetite during that time as well. Patient denies constipation, diarrhea, fever, dysuria, hematuria, vaginal bleeding. Patient's last menstrual period was at the end of April and has had heavier and more painful menstrual periods in the past 3 months. During patient's stay in the ER, patient had blood drawn, during which patient became diaphoretic and nauseous and became sinus bradycardic in the 30s. Patient reports that she clenched her jaw and could not blink at this time but was fully aware of the events transpiring. Patient did not have any e pisode of tongue biting, loss of urination or loss of bowel movement at that time. 12-point ROS was unremarkable except for what was mentioned above. PMH: as mentioned above PSH: in 2011 FMHx: pancreatitis SHx: 1/5 of alcohol a day for 4 months prior to pancreatitis episode 1 year ago. Patient drank socially prior to that and started drinking at age 14. Patient smokes cigarettes 1 PPD for 15 years. Patient smokes marijuana daily for 15 years. Allergies: NKDA PMD: Dr. Reeves Home Rx: suboxone, zoloft, vistril, gabapentin Present on Admission - Present on Admission Any Indicators Present on Admission: No Review of Systems - Constitutional Constitutional: Weight Loss. absent: Chills, Fever - EENT Eyes: absent: Blurred Vision Ears: absent: Decreased Hearing Nose/Mouth/Throat: absent: Epistaxis - Cardiovascular Cardiovascular: Diaphoresis, Slow Heart Rate. absent: Chest Pain, Pain Radiating to Arm/Neck/Jaw, Palpitations, Pedal Edema - Respiratory Respiratory: absent: Cough, Hemoptysis, Wheezing - Gastrointestinal Gastrointestinal: Abdominal Pain, Nausea. absent: Constipation, Diarrhea, Dyspepsia, Vomiting - Genitourinary Genitourinary: absent: Change in Urinary Stream, Dysuria, Hematuria - Reproductive: Female Reproductive:Female: Heavy Menses, Dysmenorrhea - Musculoskeletal Musculoskeletal: absent: Arthralgias, Muscle Weakness - Neurological Neurological: Headaches. absent: Tingling, Tremor Past Patient History - Infectious Disease Hx of Infectious Diseases: None - Past Social History Smoking Status: Light Smoker < 10 Cigarettes Daily - CARDIAC Hx Cardiac Disorders: No Hx Hypertension: No - PULMONARY Hx Respiratory Disorders: No Hx Tuberculosis: No - NEUROLOGICAL Hx Neurological Disorder: No HX Cerebrovascular Accident: No Hx Seizures: No - HEENT Hx HEENT Problems: No - RENAL Hx Chronic Kidney Disease: No - ENDOCRINE/METABOLIC Hx Endocrine Disorders: No - HEMATOLOGICAL/ONCOLOGICAL Hx Blood Disorders: No Hx Cancer: No Hx Hepatitis A: Yes Hx Hepatitis C: Yes - INTEGUMENTARY Hx Dermatological Problems: No - MUSCULOSKELETAL/RHEUMATOLOGICAL Hx Musculoskeletal Disorders: No Hx Falls: No - GASTROINTESTINAL Hx Gastrointestinal Disorders: No Other/Comment: Pancreatitis - GENITOURINARY/GYNECOLOGICAL Hx Sexually Transmitted Disorders: No Other/Comment: genital herpes - PSYCHIATRIC Hx Psychophysiologic Disorder: No Hx Depression: No Hx Emotional Abuse: No Hx Physical Abuse: No Hx Substance Use: Yes (Marijuana) Other/Comment: substanc eabuse - recovery - SURGICAL HISTORY Other/Comment: Physical Exam - Constitutional Appears: Well, Non-toxic, No Acute Distress - Head Exam Head Exam: ATRAUMATIC, NORMAL INSPECTION, NORMOCEPHALIC - Eye Exam Eye Exam: EOMI, PERRL - Respiratory Exam Respiratory Exam: Clear to Auscultation Bilateral, NORMAL BREATHING PATTERN - Cardiovascular Exam Cardiovascular Exam: REGULAR RHYTHM, RRR - GI/Abdominal Exam GI & Abdominal Exam: Normal Bowel Sounds, Soft, Tenderness (subjective at substernal) - Extremities Exam Extremities exam: Positive for: full ROM - Neurological Exam Neurological exam: Alert, CN II-XII Intact, Oriented x3 Results - Vital Signs Recent Vital Signs: Last Vital Signs Temp 98.4 F 05/12/18 15:15 Pulse 52 L 05/12/18 20:23 Resp 16 05/12/18 20:23 BP 107/65 05/12/18 20:00 Pulse Ox 100 05/12/18 20:23 - Labs Result Diagrams: 05/12/18 16:25 05/12/18 16:25 Labs: Laboratory Results - last 24 hr 05/12/18 05/12/18 05/12/18 16:12 16:25 16:25 WBC 8.6 RBC 4.34 Hgb 12.3 Hct 37.2 MCV 85.7 MCH 28.3 MCHC 33.1 RDW 14.1 Plt Count 277 MPV 9.2 Gran % 54.1 Lymph % (Auto) 40.1 H [place] % (Auto) 3.6 Eos % (Auto) 2.0 Baso % (Auto) 0.2 Gran # 4.67 Lymph # (Auto) 3.5 H [place] # (Auto) 0.3 Eos # (Auto) 0.2 Baso # (Auto) 0.02 Sodium Potassium Chloride Carbon Dioxide Anion Gap BUN Creatinine Est GFR ( Amer) Est GFR (Non-Af Amer) POC Glucose (mg/dL) 94 Random Glucose Calcium Magnesium Total Bilirubin AST ALT Alkaline Phosphatase Troponin I Total Protein Albumin Globulin Albumin/Globulin Ratio Lipase Urine Color Yellow Urine Appearance Clear Urine pH 7.0 Ur Specific [place] 1.020 Urine Protein Negative Urine Glucose (UA) Negative Urine Ketones Negative Urine Blood Trace-intact H Urine Nitrate Negative Urine Bilirubin Negative Urine Urobilinogen 0.2 Ur Leukocyte Esterase Negative Urine RBC 0 - 2 Urine WBC 0 - 2 Ur Epithelial Cells Many H Urine Bacteria Trace Salicylates Urine Opiates Screen Urine Methadone Screen Acetaminophen Ur Barbiturates Screen Ur Phencyclidine Scrn Ur Amphetamines Screen U Benzodiazepines Scrn U Oth Cocaine Metabols U Cannabinoids Screen Alcohol, Quantitative 05/12/18 05/12/18 05/12/18 16:25 16:25 16:25 WBC RBC Hgb Hct MCV MCH MCHC RDW Plt Count MPV Gran % Lymph % (Auto) [place] % (Auto) Eos % (Auto) Baso % (Auto) Gran # Lymph # (Auto) [place] # (Auto) Eos # (Auto) Baso # (Auto) Sodium 138 Potassium 4.5 Chloride 108 H Carbon Dioxide 25 Anion Gap 10 BUN 6 L Creatinine 0.4 L Est GFR ( Amer) > 60 Est GFR (Non-Af Amer) > 60 POC Glucose (mg/dL) Random Glucose 109 Calcium 9.3 Magnesium 2.0 Total Bilirubin 0.3 AST 36 ALT 50 Alkaline Phosphatase 89 Troponin I < 0.01 D Total Protein 7.2 Albumin 4.1 Globulin 3.0 Albumin/Globulin Ratio 1.4 Lipase 11 L Urine Color Urine Appearance Urine pH Ur Specific [place] Urine Protein Urine Glucose (UA) Urine Ketones Urine Blood Urine Nitrate Urine Bilirubin Urine Urobilinogen Ur Leukocyte Esterase Urine RBC Urine WBC Ur Epithelial Cells Urine Bacteria Salicylates < 1 L Urine Opiates Screen Negative Urine Methadone Screen Negative Acetaminophen < 10.0 L Ur Barbiturates Screen Negative Ur Phencyclidine Scrn Negative Ur Amphetamines Screen Negative U Benzodiazepines Scrn Negative U Oth Cocaine Metabols Negative U Cannabinoids Screen Positive H Alcohol, Quantitative 05/12/18 16:25 WBC RBC Hgb Hct MCV MCH MCHC RDW Plt Count MPV Gran % Lymph % (Auto) [place] % (Auto) Eos % (Auto) Baso % (Auto) Gran # Lymph # (Auto) [place] # (Auto) Eos # (Auto) Baso # (Auto) Sodium Potassium Chloride Carbon Dioxide Anion Gap BUN Creatinine Est GFR ( Amer) Est GFR (Non-Af Amer) POC Glucose (mg/dL) Random Glucose Calcium Magnesium Total Bilirubin AST ALT Alkaline Phosphatase Troponin I Total Protein Albumin Globulin Albumin/Globulin Ratio Lipase Urine Color Urine Appearance Urine pH Ur Specific [place] Urine Protein Urine Glucose (UA) Urine Ketones Urine Blood Urine Nitrate Urine Bilirubin Urine Urobilinogen Ur Leukocyte Esterase Urine RBC Urine WBC Ur Epithelial Cells Urine Bacteria Salicylates Urine Opiates Screen Urine Methadone Screen Acetaminophen Ur Barbiturates Screen Ur Phencyclidine Scrn Ur Amphetamines Screen U Benzodiazepines Scrn U Oth Cocaine Metabols U Cannabinoids Screen Alcohol, Quantitative < 10 Assessment & Plan - Assessment and Plan (Free Text) Assessment: 22 year old female with past medical history of pancreatitis 1 year ago, resolved hepatitis A, resolved hepatitis C, history of heroin abuse, history of tobacco abuse, history of alcohol abuse, current marijuana use presents with burning substernal pain that has worsened for the past 3 months that is exacerba malika with food intake and improved with marijuana. Plan: Bradycardia 2/2 to vasovagal vs. orthostatic hypotension -Patient initially presented with HR of 52 which reduced to 36 during blood draw and has improved to 73. -Patient is currently on telemetry floor. -Vital signs Q4 -Orthostatic vitals -Cardiology, Dr. Tyler, consulted for recommendations. Abdominal Pain 2/2 to pancreatitis vs. chronic pain syndrome from heroin use vs. doubt ectopic or hemorrhagic cyst -History of pancreatitis and has had pain since that time 1 year ago -Abdominal and pelvis CT with PO and IV contrast ordered -NPO -NS at 100cc/hr -Tylenol for moderate pain, Ibuprofen for severe pain. Avoid opiods. Patient does not want to take opiod medication History of polysubstance abuse including heroin -Patient has significant history of heroin abuse. -Patient reports taking suboxone for past 3 months. -Pharmacy currently closed. Will verify with pharmacy and restart once verified in the morning. Current Tobacco Use -Patient smokes 1 PPD currently -Nicotine patch ordered in ED -Tobacco cessation counseling performed History of Alcohol Abuse -Patient reports last drink was 9 months ago. -Serum alcohol<10 on admission GI prophylaxis: protonix 40 mg daily DVT prophylaxis: SCD, lovenox Patient plan discussed with Dr. Lincoln. - Date & Time Date: 05/13/18 Time: 00:15
[2018-05-12 23:03] LABS: TROPONIN I < 0.01 ng/mL
[2018-05-13] MEDS ORDERED: Barium Sulfate Susp 2.1% w/v, 2.0% w/w 450 mL Bottle PO ONE (00:57)
[2018-05-13 03:17] VITALS: O2SAT 98
[2018-05-13 07:04] LABS: TROPONIN I < 0.01 ng/mL
[2018-05-13 07:06] LABS: BASO # 0.02 K/mm3 (0.0-2.0); BASO % 0.3 % (0.0-3.0); EOS # 0.2 (0.0-0.7); EOS % 2.8 % (1.5-5.0); GRAN # 2.84 (1.4-6.5); GRAN % 43.8 % (50.0-68.0); HEMOGLOBIN 11.8 g/dL (12.0-16.0); LYMPH # 3.1 (1.2-3.4); LYMPH % 47.5 % (22.0-35.0); MEAN CELL VOLUME 85.8 fl (80.0-105.0); MEAN CORPUSCULAR HEMOGLOBIN 27.4 pg (25.0-35.0); MEAN PLATELET VOLUME 9.4 fl (7.0-11.0); MONO # 0.4 (0.1-0.6); MONO % 5.6 % (1.0-6.0); RBC 4.3 10^6/uL (3.5-6.1); RED CELL DISTRIBUTION WIDTH 14.2 % (11.5-14.5); WHITE BLOOD COUNT 6.5 10^3/uL (4.5-11.0)
[2018-05-13 07:52] LABS: ALB/GLOB RATIO 1.3 (1.1-1.8); ALBUMIN 3.4 g/dL (3.0-4.8); ALT/SGPT 46 U/L (7-56); AST/SGOT 28 U/L (14-36); BLOOD UREA NITROGEN 4 mg/dL (7-21); CALCIUM 8.5 mg/dL (8.4-10.5); GFR NON-AFRICAN AMERICAN > 60; LIPASE 17 U/L (23-300)
[2018-05-13] MEDS: Sodium Chloride 0.9% 1,000 ML IV SCH ×3 (08:23→17:04)
[2018-05-13] MEDS ORDERED: Iohexol 350 MG/100 ML VIAL ONE (08:36)
--- NOTE | 2018-05-13 09:04 | RAD ---
Date of service: 05/12/2018 HISTORY: bradycardia COMPARISON: 10/21/2016 FINDINGS: LUNGS: No active pulmonary disease. PLEURA: No significant pleural effusion identified, no pneumothorax apparent. CARDIOVASCULAR: No aortic atherosclerotic calcification present. Normal cardiac size. No pulmonary vascular congestion. OSSEOUS STRUCTURES: No significant abnormalities. VISUALIZED UPPER ABDOMEN: Normal. OTHER FINDINGS: None. IMPRESSION: No active disease.
--- NOTE | 2018-05-13 09:10 | CARD ---
APPROVED REPORT Date of service: 05/12/2018 EKG Measurement Heart [id number] <Conclusion> Marked sinus bradycardia Rightward axis
[2018-05-13] MEDS: Enoxaparin 40 mg Syringe SC SCH (09:48)
--- NOTE | 2018-05-13 12:56 | CP.PCM.CON ---
<Nii Tyson - Last Filed: 05/13/18 17:41> History of Present Illness - History of Present Illness History of Present Illness: Nii Tyson DO, PGY1. GI consult note for Dr Syd Perry: epigastric pain 22 y/o female with PMH of alcohol abuse, pancreatitis IVDA (on outpatient rehab program), HCV [place] [facility] [place]ig[place] pain for the past 3 month. It's sharp, constant, 6/10 and 10/10 at worst, radiates to the back, worsens by food, partially alleviated with marijuana. Pain is associated with severe nausea, loss of appetite, and admits to 10 pounds weight loss and dark stool for the past few months. She denied vomiting, hematemesis, hemotochezia, red blood per rectum. Patient admits to drinking 1/5 of vodka for 4 months last year after which she developed epigastric pain due acute pancreatitis and got hospitalized for 9 day. She quit alcohol since then but abdominal pain did not resolve since this episode. She used herion to relieve her pain before but now on outpatient rehab program using suboxone. Currently, she started to use marijuana to relieve her pain with minimal effect. She admits to using NSAID and abx for dental abscess. She denied EGD/CSPY in the past. Patient denied CP, SOB, palpitations, muscle weakness, leg swelling. ROS reviewed with pertinent positives as above PMH: as above PSH: induced Meds: ibuprofen, suboxone All: NKDA SH: current smoker 1ppd, quit drinking, used heroin but now on outpatient rehab, current marijuana use FH: father and grandfather had alcoholic pancreatitis Past Patient History - Infectious Disease Hx of Infectious Diseases: None - Past Social History Smoking Status: Light Smoker < 10 Cigarettes Daily - CARDIAC Hx Cardiac Disorders: No Hx Hypertension: No - PULMONARY Hx Respiratory Disorders: No Hx Tuberculosis: No - NEUROLOGICAL Hx Neurological Disorder: No HX Cerebrovascular Accident: No Hx Seizures: No - HEENT Hx HEENT Problems: No - RENAL Hx Chronic Kidney Disease: No - ENDOCRINE/METABOLIC Hx Endocrine Disorders: No - HEMATOLOGICAL/ONCOLOGICAL Hx Blood Disorders: No Hx Cancer: No Hx Hepatitis A: Yes Hx Hepatitis C: Yes - INTEGUMENTARY Hx Dermatological Problems: No - MUSCULOSKELETAL/RHEUMATOLOGICAL Hx Musculoskeletal Disorders: No Hx Falls: No - GASTROINTESTINAL Hx Gastrointestinal Disorders: No Other/Comment: Pancreatitis - GENITOURINARY/GYNECOLOGICAL Hx Sexually Transmitted Disorders: No Other/Comment: genital herpes - PSYCHIATRIC Hx Psychophysiologic Disorder: No Hx Depression: No Hx Emotional Abuse: No Hx Physical Abuse: No Hx Substance Use: Yes (Marijuana) Other/Comment: substanc eabuse - recovery - SURGICAL HISTORY Other/Comment: Meds Allergies/Adverse Reactions: Allergies Allergy/AdvReac Type Severity Reaction Status Date / Time No Known Allergies Allergy Verified 07/04/16 12:34 - Medications Medications: Current Medications Acetaminophen (Tylenol 325mg Tab) 650 mg PO Q6H PRN PRN Reason: Pain, moderate (4-7) Enoxaparin Sodium (Lovenox) 40 mg SC DAILY [facility]; Protocol Last Admin: 05/13/18 09:48 Dose: 40 mg Sodium Chloride (Sodium Chloride 0.9%) 1,000 mls @ 150 mls/hr IV .Q6H40M [facility] Ibuprofen (Motrin Tab) 600 mg PO Q6H PRN PRN Reason: Pain, severe (8-10) Ondansetron HCl (Zofran Inj) 4 mg IVP Q6H PRN PRN Reason: Nausea/Vomiting Last Admin: 05/13/18 06:35 Dose: 4 mg Pantoprazole Sodium (Protonix Inj) 40 mg IVP DAILY [facility] Last Admin: 05/13/18 09:48 Dose: 40 mg Physical Exam - Constitutional Appears: Well, No Acute Distress - Head Exam Head Exam: ATRAUMATIC, NORMAL INSPECTION, NORMOCEPHALIC - Eye Exam Eye Exam: EOMI, Normal appearance, PERRL Pupil Exam: NORMAL ACCOMODATION, PERRL - ENT Exam ENT Exam: Mucous Membranes Dry Additional comments: oropharyngeal erythema - Neck Exam Neck exam: Positive for: Normal Inspection. Negative for: Thyromegaly - Respiratory Exam Respiratory Exam: Clear to Auscultation Bilateral, NORMAL BREATHING PATTERN - Cardiovascular Exam Cardiovascular Exam: REGULAR RHYTHM, +S1, +S2. absent: Gallop, Rubs - GI/Abdominal Exam GI & Abdominal Exam: Normal Bowel Sounds, Soft. absent: Tenderness Additional comments: tender to palpate in LUQ - Extremities Exam Extremities exam: Positive for: normal capillary refill, normal inspection, pedal pulses present - Back Exam Back exam: NORMAL INSPECTION - Neurological Exam Neurological exam: Alert, CN II-XII Intact, Oriented x3, Reflexes Normal - Psychiatric Exam Psychiatric exam: Anxious, Depressed - Skin Skin Exam: Dry, Intact, Normal Color, Warm Results - Vital Signs Recent Vital Signs: Last Vital Signs Temp 97.9 F 05/13/18 06:00 Pulse 45 L 05/13/18 10:00 Resp 20 05/13/18 06:00 BP 107/77 05/13/18 06:00 Pulse Ox 98 05/13/18 06:00 - Labs Result Diagrams: 05/13/18 06:15 05/13/18 06:20 Labs: Laboratory Results - last 24 hr 05/12/18 05/12/18 05/12/18 16:12 16:25 16:25 WBC 8.6 RBC 4.34 Hgb 12.3 Hct 37.2 MCV 85.7 MCH 28.3 MCHC 33.1 RDW 14.1 Plt Count 277 MPV 9.2 Gran % 54.1 Lymph % (Auto) 40.1 H Glad[place] % (Auto) 3.6 Eos % (Auto) 2.0 Baso % (Auto) 0.2 Gran # 4.67 Lymph # (Auto) 3.5 H [place] # (Auto) 0.3 Eos # (Auto) 0.2 Baso # (Auto) 0.02 Sodium Potassium Chloride Carbon Dioxide Anion Gap BUN Creatinine Est GFR ( Amer) Est GFR (Non-Af Amer) POC Glucose (mg/dL) 94 Random Glucose Calcium Phosphorus Magnesium Total Bilirubin AST ALT Alkaline Phosphatase Troponin I Total Protein Albumin Globulin Albumin/Globulin Ratio Lipase Urine Color Yellow Urine Appearance Clear Urine pH 7.0 Ur Specific [place] 1.020 Urine Protein Negative Urine Glucose (UA) Negative Urine Ketones Negative Urine Blood Trace-intact H Urine Nitrate Negative Urine Bilirubin Negative Urine Urobilinogen 0.2 Ur Leukocyte Esterase Negative Urine RBC 0 - 2 Urine WBC 0 - 2 Ur Epithelial Cells Many H Urine Bacteria Trace Salicylates Urine Opiates Screen Urine Methadone Screen Acetaminophen Ur Barbiturates Screen Ur Phencyclidine Scrn Ur Amphetamines Screen U Benzodiazepines Scrn U Oth Cocaine Metabols U Cannabinoids Screen Alcohol, Quantitative 05/12/18 05/12/18 05/12/18 16:25 16:25 16:25 WBC RBC Hgb Hct MCV MCH MCHC RDW Plt Count MPV Gran % Lymph % (Auto) Gladwin % (Auto) Eos % (Auto) Baso % (Auto) Gran # Lymph # (Auto) Gladwin # (Auto) Eos # (Auto) Baso # (Auto) Sodium 138 Potassium 4.5 Chloride 108 H Carbon Dioxide 25 Anion Gap 10 BUN 6 L Creatinine 0.4 L Est GFR ( Amer) > 60 Est GFR (Non-Af Amer) > 60 POC Glucose (mg/dL) Random Glucose 109 Calcium 9.3 Phosphorus Magnesium 2.0 Total Bilirubin 0.3 AST 36 ALT 50 Alkaline Phosphatase 89 Troponin I < 0.01 D Total Protein 7.2 Albumin 4.1 Globulin 3.0 Albumin/Globulin Ratio 1.4 Lipase 11 L Urine Color Urine Appearance Urine pH Ur Specific [place] Urine Protein Urine Glucose (UA) Urine Ketones Urine Blood Urine Nitrate Urine Bilirubin Urine Urobilinogen Ur Leukocyte Esterase Urine RBC Urine WBC Ur Epithelial Cells Urine Bacteria Salicylates < 1 L Urine Opiates Screen Negative Urine Methadone Screen Negative Acetaminophen < 10.0 L Ur Barbiturates Screen Negative Ur Phencyclidine Scrn Negative Ur Amphetamines Screen Negative U Benzodiazepines Scrn Negative U Oth Cocaine Metabols Negative U Cannabinoids Screen Positive H Alcohol, Quantitative 05/12/18 05/12/18 05/13/18 16:25 22:37 06:15 WBC 6.5 D RBC 4.30 Hgb 11.8 L Hct 36.9 MCV 85.8 MCH 27.4 MCHC 32.0 RDW 14.2 Plt Count 247 MPV 9.4 Gran % 43.8 L Lymph % (Auto) 47.5 H Glad[place] % (Auto) 5.6 Eos % (Auto) 2.8 Baso % (Auto) 0.3 Gran # 2.84 Lymph # (Auto) 3.1 Gladwin # (Auto) 0.4 Eos # (Auto) 0.2 Baso # (Auto) 0.02 Sodium Potassium Chloride Carbon Dioxide Anion Gap BUN Creatinine Est GFR ( Amer) Est GFR (Non-Af Amer) POC Glucose (mg/dL) Random Glucose Calcium Phosphorus 3.3 Magnesium 1.9 Total Bilirubin AST ALT Alkaline Phosphatase Troponin I < 0.01 Total Protein Albumin Globulin Albumin/Globulin Ratio Lipase Urine Color Urine Appearance Urine pH Ur Specific [place] Urine Protein Urine Glucose (UA) Urine Ketones Urine Blood Urine Nitrate Urine Bilirubin Urine Urobilinogen Ur Leukocyte Esterase Urine RBC Urine WBC Ur Epithelial Cells Urine Bacteria Salicylates Urine Opiates Screen Urine Methadone Screen Acetaminophen Ur Barbiturates Screen Ur Phencyclidine Scrn Ur Amphetamines Screen U Benzodiazepines Scrn U Oth Cocaine Metabols U Cannabinoids Screen Alcohol, Quantitative < 10 05/13/18 06:20 WBC RBC Hgb Hct MCV MCH MCHC RDW Plt Count MPV Gran % Lymph % (Auto) [place] % (Auto) Eos % (Auto) Baso % (Auto) Gran # Lymph # (Auto) Gladwin # (Auto) Eos # (Auto) Baso # (Auto) Sodium 139 Potassium 4.2 Chloride 112 H Carbon Dioxide 24 Anion Gap 7 L BUN 4 L Creatinine 0.4 L Est GFR ( Amer) > 60 Est GFR (Non-Af Amer) > 60 POC Glucose (mg/dL) Random Glucose 96 Calcium 8.5 Phosphorus 2.9 Magnesium 1.9 Total Bilirubin 0.3 AST 28 ALT 46 Alkaline Phosphatase 87 Troponin I < 0.01 Total Protein 6.2 Albumin 3.4 Globulin 2.7 Albumin/Globulin Ratio 1.3 Lipase 17 L Urine Color Urine Appearance Urine pH Ur Specific [place] Urine Protein Urine Glucose (UA) Urine Ketones Urine Blood Urine Nitrate Urine Bilirubin Urine Urobilinogen Ur Leukocyte Esterase Urine RBC Urine WBC Ur Epithelial Cells Urine Bacteria Salicylates Urine Opiates Screen Urine Methadone Screen Acetaminophen Ur Barbiturates Screen Ur Phencyclidine Scrn Ur Amphetamines Screen U Benzodiazepines Scrn U Oth Cocaine Metabols U Cannabinoids Screen Alcohol, Quantitative Assessment & Plan - Assessment and Plan (Free Text) Assessment: 22 y/o female with PMH of alcohol abuse, pancreatitis IVDA (on outpatient rehab program), untreated HCV [place] [facility] [place] for the past 3 month Plan: -patient is hemodynamically stable, afebrile, no leukocytosis, H/H stable and at baseline -h/o chronic epigastric pain with dark stool and NSAID use concerning for PUD. -NPO after midnight. possible EGD in am -AST/ALT/ALP/lipase wnl -abd U/S ordered -hepatitis panel consistent with old HCV. virus not detected -CT A/P w PO/IV contrast: ovarian cysts -iron studies, folate, vitamin B12 level -keep NPO -continue PPI, zofran, IVF <Syd,Kovil V - Last Filed: 05/13/18 23:08> Meds - Medications Medications: Current Medications Acetaminophen (Tylenol 325mg Tab) 650 mg PO Q6H PRN PRN Reason: Pain, moderate (4-7) Last Admin: 05/13/18 13:40 Dose: 650 mg Enoxaparin Sodium (Lovenox) 40 mg SC DAILY [facility]; Protocol Last Admin: 05/13/18 09:48 Dose: 40 mg Home Med (Home Med) 1 unit PO BID [facility] Last Admin: 05/13/18 17:10 Dose: Not Given Sodium Chloride (Sodium Chloride 0.9%) 1,000 mls @ 150 mls/hr IV .Q6H40M [facility] Last Admin: 05/13/18 17:04 Dose: 150 mls/hr Ondansetron HCl (Zofran Inj) 4 mg IVP Q6H PRN PRN Reason: Nausea/Vomiting Last Admin: 05/13/18 12:32 Dose: 4 mg Pantoprazole Sodium (Protonix Inj) 40 mg IVP DAILY [facility] Last Admin: 05/13/18 09:48 Dose: 40 mg Results - Vital Signs Recent Vital Signs: Last Vital Signs Temp 98.5 F 05/13/18 18:00 Pulse 53 L 05/13/18 18:00 Resp 20 05/13/18 18:00 BP 130/72 05/13/18 18:00 Pulse Ox 98 05/13/18 06:00 - Labs Result Diagrams: 05/13/18 06:15 05/13/18 06:20 Labs: Laboratory Results - last 24 hr 05/13/18 05/13/18 05/13/18 06:15 06:20 13:01 WBC 6.5 D RBC 4.30 Hgb 11.8 L Hct 36.9 MCV 85.8 MCH 27.4 MCHC 32.0 RDW 14.2 Plt Count 247 MPV 9.4 Gran % 43.8 L Lymph % (Auto) 47.5 H [place] % (Auto) 5.6 Eos % (Auto) 2.8 Baso % (Auto) 0.3 Gran # 2.84 Lymph # (Auto) 3.1 [place] # (Auto) 0.4 Eos # (Auto) 0.2 Baso # (Auto) 0.02 Sodium 139 Potassium 4.2 Chloride 112 H Carbon Dioxide 24 Anion Gap 7 L BUN 4 L Creatinine 0.4 L Est GFR ( Amer) > 60 Est GFR (Non-Af Amer) > 60 POC Glucose (mg/dL) 106 Random Glucose 96 Calcium 8.5 Phosphorus 2.9 Magnesium 1.9 Iron TIBC % Saturation Total Bilirubin 0.3 AST 28 ALT 46 Alkaline Phosphatase 87 Troponin I < 0.01 Total Protein 6.2 Albumin 3.4 Globulin 2.7 Albumin/Globulin Ratio 1.3 Lipase 17 L Vitamin B12 Folate Hepatitis A IgM Ab Hep Bs Antigen Hep B Core IgM Ab Hepatitis C Antibody 05/13/18 05/13/18 05/13/18 13:30 13:30 13:30 WBC RBC Hgb Hct MCV MCH MCHC RDW Plt Count MPV Gran % Lymph % (Auto) [place] % (Auto) Eos % (Auto) Baso % (Auto) Gran # Lymph # (Auto) [place] # (Auto) Eos # (Auto) Baso # (Auto) Sodium Potassium Chloride Carbon Dioxide Anion Gap BUN Creatinine Est GFR ( Amer) Est GFR (Non-Af Amer) POC Glucose (mg/dL) Random Glucose Calcium Phosphorus Magnesium Iron 99 TIBC 385 % Saturation 26 Total Bilirubin AST ALT Alkaline Phosphatase Troponin I Total Protein Albumin Globulin Albumin/Globulin Ratio Lipase Vitamin B12 662 Folate 18.9 Hepatitis A IgM Ab Negative Hep Bs Antigen Negative Hep B Core IgM Ab Negative Hepatitis C Antibody Reactive Reactive Attending/Attestation - Attestation I have personally seen and examined this patient.: Yes I have fully participated in the care of the patient.: Yes I have reviewed all pertinent clinical information: Yes Notes (Text): This is an addendum to consult report dictated by the Resident.The patient was seen and examined earlier. Medical records, lab studies, imagings were reviewed. Last 24 hours events reviewed. Agreed with the above treatment plan as outlined in Resident 's notes with the addition of the following 05/13/18 23:08
--- NOTE | 2018-05-13 13:03 | CT ---
Date of service: 05/13/2018 PROCEDURE: CT Abdomen and Pelvis with contrast HISTORY: abdominal pain with history of pancreatitis COMPARISON: None. TECHNIQUE: Contrast dose: 100 cc of Omni 350 Radiation dose: Total exam DLP = 287.59 mGy-cm. This CT exam was performed using one or more of the following dose reduction techniques: Automated exposure control, adjustment of the mA and/or kV according to patient size, and/or use of iterative reconstruction technique. FINDINGS: LOWER THORAX: Unremarkable. LIVER: Unremarkable. No gross lesion or ductal dilatation. GALLBLADDER AND BILE DUCTS: Unremarkable. PANCREAS: Unremarkable. No gross lesion or ductal dilatation. SPLEEN: Unremarkable. ADRENALS: Unremarkable. No mass. KIDNEYS AND URETERS: Unremarkable. No hydronephrosis. No solid mass. VASCULATURE: Unremarkable. No aortic aneurysm. No aortic atherosclerotic calcification or mural plaque present. BOWEL: Unremarkable. No obstruction. No gross mural thickening. APPENDIX: Normal appendix. PERITONEUM: Unremarkable. No free fluid. No free air. LYMPH NODES: Unremarkable. No enlarged lymph nodes. BLADDER: Unremarkable. REPRODUCTIVE: There is a 2.3 cm cyst in the left ovary. The right ovary is mildly enlarged. There is a small amount of fluid in the cul-de-sac most likely due to recent cyst rupture. BONES: No acute fracture. OTHER FINDINGS: None. IMPRESSION: There is a 2.3 cm cyst in the left ovary. The right ovary is mildly enlarged. There is a small amount of fluid in the cul-de-sac most likely due to recent cyst rupture. No acute pancreatitis
--- NOTE | 2018-05-13 14:05 | CP.PCM.PN ---
<Maritza Lagos - Last Filed: 05/13/18 14:04> Subjective - Date & Time of Evaluation Date of Evaluation: 05/13/18 Time of Evaluation: 10:00 - Subjective Subjective: Verified with [facility] that patient on suboxone 8mg BID. Patient to have partner bring suboxone from home. Objective - Vital Signs/Intake and Output Vital Signs (last 24 hours): Temp Pulse Resp BP Pulse Ox 97.6 F 51 L 18 104/63 98 05/13/18 12:00 05/13/18 12:00 05/13/18 12:00 05/13/18 12:00 05/13/18 06:00 - Medications Medications: Current Medications Acetaminophen (Tylenol 325mg Tab) 650 mg PO Q6H PRN PRN Reason: Pain, moderate (4-7) Last Admin: 05/13/18 13:40 Dose: 650 mg Enoxaparin Sodium (Lovenox) 40 mg SC DAILY [facility]; Protocol Last Admin: 05/13/18 09:48 Dose: 40 mg Home Med (Home Med) 1 unit PO BID [facility] Sodium Chloride (Sodium Chloride 0.9%) 1,000 mls @ 150 mls/hr IV .Q6H40M [facility] Last Admin: 05/13/18 12:56 Dose: 150 mls/hr Ibuprofen (Motrin Tab) 600 mg PO Q6H PRN PRN Reason: Pain, severe (8-10) Ondansetron HCl (Zofran Inj) 4 mg IVP Q6H PRN PRN Reason: Nausea/Vomiting Last Admin: 05/13/18 12:32 Dose: 4 mg Pantoprazole Sodium (Protonix Inj) 40 mg IVP DAILY [facility] Last Admin: 05/13/18 09:48 Dose: 40 mg - Labs Labs: 05/13/18 06:15 05/13/18 06:20 <Ishaan Ruiz - Last Filed: 05/18/18 16:25> Objective - Vital Signs/Intake and Output Vital Signs (last 24 hours): Temp Pulse Resp BP Pulse Ox 98.4 F 48 L 18 154/98 H 98 05/14/18 10:52 05/14/18 14:00 05/14/18 10:52 05/14/18 10:52 05/14/18 10:52 - Labs Labs: 05/14/18 06:45 05/14/18 06:45 Attending/Attestation - Attestation I have personally seen and examined this patient.: Yes I have fully participated in the care of the patient.: Yes I have reviewed all pertinent clinical information, including history, physical exam and plan: Yes
[2018-05-13 14:16] LABS: IRON 99 ug/dL (45-180)
[2018-05-13 14:25] LABS: % IRON SATURATION 26 % (20-55); TOTAL IRON BINDING CAPACITY 385 ug/dL (265-497)
[2018-05-13] MEDS: SUBOXONE 8 MG PO SCH (17:10)
[2018-05-13] MEDS ORDERED: Home Med 1 UNIT PO SCH (18:00)
[2018-05-13 20:42] LABS: HEPATITIS B SURFACE AG Negative (NEGATIVE)
[2018-05-13 20:47] LABS: HEPATITIS A IGM NEGATIVE (NEGATIVE); HEPATITIS B CORE AB NEGATIVE (NEGATIVE)
[2018-05-13 21:03] LABS: HEPATITIS C ANTIBODY REACTIVE (NEGATIVE)
[2018-05-13 21:16] LABS: FOLATE 18.9 ng/mL
[2018-05-13 21:34] LABS: HEPATITIS C ANTIBODY REACTIVE (NEGATIVE)
[2018-05-14 06:15] VITALS: RESP 18; TEMP 98.4
[2018-05-14 07:23] LABS: BASO # 0.02 K/mm3 (0.0-2.0); BASO % 0.3 % (0.0-3.0); EOS # 0.1 (0.0-0.7); EOS % 1.1 % (1.5-5.0); GRAN # 4.89 (1.4-6.5); HEMOGLOBIN 11.7 g/dL (12.0-16.0); LYMPH # 2.5 (1.2-3.4); LYMPH % 31.9 % (22.0-35.0); MEAN CELL VOLUME 85.3 fl (80.0-105.0); MEAN CORPUSCULAR HEMOGLOBIN 27.7 pg (25.0-35.0); MEAN CORPUSCULAR HGB CONC 32.5 g/dl (31.0-37.0); MEAN PLATELET VOLUME 9.5 fl (7.0-11.0); MONO # 0.4 (0.1-0.6); MONO % 4.7 % (1.0-6.0); RBC 4.22 10^6/uL (3.5-6.1); RED CELL DISTRIBUTION WIDTH 13.9 % (11.5-14.5); WHITE BLOOD COUNT 7.9 10^3/uL (4.5-11.0)
[2018-05-14] MEDS: Sodium Chloride 0.9% 1,000 ML IV SCH ×3 (08:05→12:39)
[2018-05-14 08:09] LABS: ALB/GLOB RATIO 1.4 (1.1-1.8); ALBUMIN 3.7 g/dL (3.0-4.8); ALT/SGPT 39 U/L (7-56); AST/SGOT 35 U/L (14-36); BLOOD UREA NITROGEN 4 mg/dL (7-21); CALCIUM 8.7 mg/dL (8.4-10.5); GFR NON-AFRICAN AMERICAN > 60
--- NOTE | 2018-05-14 09:30 | US ---
Date of service: 05/13/2018 HISTORY: epigastric pain COMPARISON: CT abdomen and pelvis from 05/13/2018. TECHNIQUE: Sonographic evaluation of the abdomen. FINDINGS: LIVER: Measures 12.6 cm. There is mild diffuse increased echogenicity of the liver parenchyma. No mass. No intrahepatic bile duct dilatation. GALLBLADDER: There are no gallstones, wall thickening or pericholecystic fluid. The sonographic Quezada's sign is negative. COMMON BILE DUCT: Measures 3.4 mm. No stones. There is mild intrahepatic biliary dilatation. PANCREAS: Unremarkable as visualized. No mass. No ductal dilatation. RIGHT KIDNEY: Measures 11.7cm. Normal echogenicity. No calculus, mass, or hydronephrosis. LEFT KIDNEY: Measures 11.0cm. Normal echogenicity. No calculus, mass, or hydronephrosis. SPLEEN: Normal in size and contour. No mass. AORTA: No aneurysmal dilatation. IVC: Unremarkable. OTHER FINDINGS: None. IMPRESSION: Mild fatty liver. No cholelithiasis. Mild intrahepatic biliary ductal dilatation of uncertain etiology. A preliminary report was provided by [facility].
[2018-05-14] MEDS ORDERED: Propofol 10 mg/ml Inj (20 ML) ONE ×3 (09:53→10:07)
[2018-05-14] MEDS ORDERED: Sodium Chloride 0.9% 1,000 ML IV SCH (10:00)
[2018-05-14] MEDS: SUBOXONE 8 MG PO SCH (10:46)
[2018-05-14] MEDS: Enoxaparin 40 mg Syringe SC SCH ×2 (12:39→12:45)
[2018-05-14 13:05] VITALS: BP 154/98
[2018-05-14 14:17] VITALS: PULSE 48
--- NOTE | 2018-05-14 15:12 | CP.PCM.DIS ---
<Maritza Lagos - Last Filed: 05/14/18 15:01> Provider - Provider Date of Admission: 05/12/18 18:10 Attending physician: Ishaan Ruiz MD Consults: 05/12/18 21:12 Cardiology Consult Routine Comment: Consulting Provider: Sincere Tyler Consulting Physician: Sincere Tyler Reason for Consult: symptomatic bradycardia 05/12/18 21:40 Physician Consult Routine Comment: Consulting Provider: Natalia Velarde V Consulting Physician: Natalia Velarde V Reason for Consult: abdominal pain unresolved with history of pancreatitis Time Spent in preparation of Discharge (in minutes): 35 Hospital Course - Lab Results Lab Results: Most Recent Lab Values WBC 7.9 10^3/uL (4.5-11.0) D 05/14/18 06:45 RBC 4.22 10^6/uL (3.5-6.1) 05/14/18 06:45 Hgb 11.7 g/dL (12.0-16.0) L 05/14/18 06:45 Hct 36.0 % (36.0-48.0) 05/14/18 06:45 MCV 85.3 fl (80.0-105.0) 05/14/18 06:45 MCH 27.7 pg (25.0-35.0) 05/14/18 06:45 MCHC 32.5 g/dl (31.0-37.0) 05/14/18 06:45 RDW 13.9 % (11.5-14.5) 05/14/18 06:45 Plt Count 246 10^3/uL (120.0-450.0) 05/14/18 06:45 MPV 9.5 fl (7.0-11.0) 05/14/18 06:45 Gran % 62.0 % (50.0-68.0) 05/14/18 06:45 Lymph % (Auto) 31.9 % (22.0-35.0) 05/14/18 06:45 [place] % (Auto) 4.7 % (1.0-6.0) 05/14/18 06:45 Eos % (Auto) 1.1 % (1.5-5.0) L 05/14/18 06:45 Baso % (Auto) 0.3 % (0.0-3.0) 05/14/18 06:45 Gran # 4.89 (1.4-6.5) 05/14/18 06:45 Lymph # (Auto) 2.5 (1.2-3.4) 05/14/18 06:45 [place] # (Auto) 0.4 (0.1-0.6) 05/14/18 06:45 Eos # (Auto) 0.1 (0.0-0.7) 05/14/18 06:45 Baso # (Auto) 0.02 K/mm3 (0.0-2.0) 05/14/18 06:45 Sodium 139 mmol/L (132-148) 05/14/18 06:45 Potassium 3.6 mmol/L (3.6-5.0) 05/14/18 06:45 Chloride 109 mmol/L (98-107) H 05/14/18 06:45 Carbon Dioxide 25 mmol/L (21-33) 05/14/18 06:45 Anion Gap 9 (10-20) L 05/14/18 06:45 BUN 4 mg/dL (7-21) L 05/14/18 06:45 Creatinine 0.5 mg/dl (0.7-1.2) L 05/14/18 06:45 Est GFR ( Amer) > 60 05/14/18 06:45 Est GFR (Non-Af Amer) > 60 05/14/18 06:45 POC Glucose (mg/dL) 106 mg/dL (65-110) 05/13/18 13:01 Random Glucose 80 mg/dL (70-110) 05/14/18 06:45 Calcium 8.7 mg/dL (8.4-10.5) 05/14/18 06:45 Phosphorus 2.9 mg/dL (2.5-4.5) 05/14/18 06:45 Magnesium 1.6 mg/dL (1.7-2.2) L 05/14/18 06:45 Iron 99 ug/dL (45-180) 05/13/18 13:30 TIBC 385 ug/dL (265-497) 05/13/18 13:30 % Saturation 26 % (20-55) 05/13/18 13:30 Total Bilirubin 0.5 mg/dL (0.2-1.3) 05/14/18 06:45 AST 35 U/L (14-36) 05/14/18 06:45 ALT 39 U/L (7-56) 05/14/18 06:45 Alkaline Phosphatase 86 U/L (38-126) 05/14/18 06:45 Troponin I < 0.01 ng/mL 05/13/18 06:20 Total Protein 6.3 g/dL (5.8-8.3) 05/14/18 06:45 Albumin 3.7 g/dL (3.0-4.8) 05/14/18 06:45 Globulin 2.6 gm/dL 05/14/18 06:45 Albumin/Globulin Ratio 1.4 (1.1-1.8) 05/14/18 06:45 Lipase 17 U/L (23-300) L 05/13/18 06:20 Vitamin B12 662 pg/mL (239-931) 05/13/18 13:30 Folate 18.9 ng/mL 05/13/18 13:30 Urine Color Yellow (YELLOW) 05/12/18 16:25 Urine Appearance Clear (CLEAR) 05/12/18 16:25 Urine pH 7.0 (4.7-8.0) 05/12/18 16:25 Ur Specific [place] 1.020 (1.005-1.035) 05/12/18 16:25 Urine Protein Negative mg/dL (<30 mg/dL) 05/12/18 16:25 Urine Glucose (UA) Negative mg/dL (NEGATIVE) 05/12/18 16:25 Urine Ketones Negative mg/dL (NEGATIVE) 05/12/18 16:25 Urine Blood Trace-intact (NEGATIVE) H 05/12/18 16:25 Urine Nitrate Negative (NEGATIVE) 05/12/18 16:25 Urine Bilirubin Negative (NEGATIVE) 05/12/18 16:25 Urine Urobilinogen 0.2 E.U./dL (<1 E.U./dL) 05/12/18 16:25 Ur Leukocyte Esterase Negative Pérez/uL (NEGATIVE) 05/12/18 16:25 Urine RBC 0 - 2 /hpf (0-2) 05/12/18 16:25 Urine WBC 0 - 2 /hpf (0-6) 05/12/18 16:25 Ur Epithelial Cells Many /hpf (0-5) H 05/12/18 16:25 Urine Bacteria Trace /hpf (NONE) 05/12/18 16:25 Urine HCG, Qual Negative (NEGATIVE) 05/14/18 08:00 Salicylates < 1 mg/dL (2.0-20.0) L 05/12/18 16:25 Urine Opiates Screen Negative (NEGATIVE) 05/12/18 16:25 Urine Methadone Screen Negative (NEGATIVE) 05/12/18 16:25 Acetaminophen < 10.0 ug/ml (10.0-20.0) L 05/12/18 16:25 Ur Barbiturates Screen Negative (NEGATIVE) 05/12/18 16:25 Ur Phencyclidine Scrn Negative (NEGATIVE) 05/12/18 16:25 Ur Amphetamines Screen Negative (NEGATIVE) 05/12/18 16:25 U Benzodiazepines Scrn Negative (NEGATIVE) 05/12/18 16:25 U Oth Cocaine Metabols Negative (NEGATIVE) 05/12/18 16:25 U Cannabinoids Screen Positive (NEGATIVE) H 05/12/18 16:25 Alcohol, Quantitative < 10 mg/dL (0-10) 05/12/18 16:25 Hepatitis A IgM Ab Negative (NEGATIVE) 05/13/18 13:30 Hep Bs Antigen Negative (NEGATIVE) 05/13/18 13:30 Hep B Core IgM Ab Negative (NEGATIVE) 05/13/18 13:30 Hepatitis C Antibody Reactive (NEGATIVE) 05/13/18 13:30 - Hospital Course Hospital Course: Upon admission, 22 year old female with past medical history of pancreatitis 1 year ago, resolved hepatitis A, resolved hepatitis C, history of heroin abuse, history of tobacco abuse, history of alcohol abuse, current marijuana use presents with burning substernal pain that has worsened for the past 3 months that is exacerbated with food intake and improved with marijuana. Pain started 1 year ago after patient had an episode of pancreatitis after drinking 1/5 of vodka daily for 4 months. Patient reports nausea but has had no episodes of vomiting. Patient has had a 10 pound weight loss in the past month and has had a loss of appetite during that time as well. Patient denies constipation, diarrhea, fever, dysuria, hematuria, vaginal bleeding. Patient's last menstrual period was at the end of April and has had heavier and more painful menstrual periods in the past 3 months. During patient's stay in the ER, patient had blood drawn, during which patient became diaphoretic and nauseous and became sinus bradycardic in the 30s. Patient reports that she clenched her jaw and could not blink at this time but was fully aware of the events transpiring. Patient did not have any episode of tongue biting, loss of urination or loss of bowel movement at that time. During hospital course, patient's lipase as WNL, afebrile and no WBC count noted. Folate and B12 WNL. Trops x3 unremarkable. AST/ALT was WNL. Hepatitis panel was consistent with previous HCV infection. CTAP showed ovarian cyst, otherwise unremarkable. Abd US showed mild fatty liver, no cholelithiasis. Mild intrahepatic biliary ductal dilation of uncertain etiology. EGD showed gastritis, biopsy taken. Patient to f/u with GI outpatient for biopsy results as well as f/u for symptoms. Initial EKG showed bradycardia at 41bpm with rightward axis, no other findings. Cardiology said likey 2/2 vagal episode, no further workup necessary. Patient discharged on nexium for gastritis and advised to stop NSAID use. Patient agreed with advise and agreed with discharge plan. All of patient's questions were answered. Discharge Exam - Additional Findings Additional findings: - Constitutional Constitutional: Weight Loss. absent: Chills, Fever - EENT Eyes: absent: Blurred Vision Ears: absent: Decreased Hearing Nose/Mouth/Throat: absent: Epistaxis - Cardiovascular Cardiovascular: Diaphoresis, Slow Heart Rate. absent: Chest Pain, Pain Radiating to Arm/Neck/Jaw, Palpitations, Pedal Edema - Respiratory Respiratory: absent: Cough, Hemoptysis, Wheezing - Gastrointestinal Gastrointestinal: Abdominal Pain, Nausea. absent: Constipation, Diarrhea, Dyspepsia, Vomiting - Genitourinary Genitourinary: absent: Change in Urinary Stream, Dysuria, Hematuria - Reproductive: Female Reproductive:Female: Heavy Menses, Dysmenorrhea - Musculoskeletal Musculoskeletal: absent: Arthralgias, Muscle Weakness - Neurological Neurological: AOx3 absent: Tingling, Tremor - Skin Skin: Warm, no rash Discharge Plan - Discharge Medications Prescriptions: Esomeprazole Magnesium [Nexium 24Hr] 20 mg PO DAILY #30 tablet.dr - Follow Up Plan Condition: STABLE Disposition: HOME/ ROUTINE Instructions: Bradycardia (DC), Gastritis (DC), Alcohol Withdrawal (DC) Additional Instructions: Please follow up with your primary care doctor within 5-7 days of discharge. Please follow up with your clip baker, Dr. Velarde within 5-7 days of discharge. Please stop taking NSAIDS such as ibuprofen and advil. Your EGD revealed gastritis. You will be started on nexium 20mg once daily. Please continue your home medications, as per our discussion, you do not need refills at this time. Please don't drink alcohol and smoke. Please return to the ED for any new or worsening symptoms. Referrals: Natalia Velarde MD [Medical Doctor] - <Ignacio Frost - Last Filed: 05/14/18 15:26> Provider - Provider Date of Admission: 05/12/18 18:10 Attending physician: Ishaan Ruiz MD Consults: 05/12/18 21:12 Cardiology Consult Routine Comment: Consulting Provider: Sincere Tyler Consulting Physician: Sincere Tyler Reason for Consult: symptomatic bradycardia 05/12/18 21:40 Physician Consult Routine Comment: Consulting Provider: Natalia Velarde V Consulting Physician: Natalia Velarde V Reason for Consult: abdominal pain unresolved with history of pancreatitis Hospital Course - Lab Results Lab Results: Most Recent Lab Values WBC 7.9 10^3/uL (4.5-11.0) D 05/14/18 06:45 RBC 4.22 10^6/uL (3.5-6.1) 05/14/18 06:45 Hgb 11.7 g/dL (12.0-16.0) L 05/14/18 06:45 Hct 36.0 % (36.0-48.0) 05/14/18 06:45 MCV 85.3 fl (80.0-105.0) 05/14/18 06:45 MCH 27.7 pg (25.0-35.0) 05/14/18 06:45 MCHC 32.5 g/dl (31.0-37.0) 05/14/18 06:45 RDW 13.9 % (11.5-14.5) 05/14/18 06:45 Plt Count 246 10^3/uL (120.0-450.0) 05/14/18 06:45 MPV 9.5 fl (7.0-11.0) 05/14/18 06:45 Gran % 62.0 % (50.0-68.0) 05/14/18 06:45 Lymph % (Auto) 31.9 % (22.0-35.0) 05/14/18 06:45 [place] % (Auto) 4.7 % (1.0-6.0) 05/14/18 06:45 Eos % (Auto) 1.1 % (1.5-5.0) L 05/14/18 06:45 Baso % (Auto) 0.3 % (0.0-3.0) 05/14/18 06:45 Gran # 4.89 (1.4-6.5) 05/14/18 06:45 Lymph # (Auto) 2.5 (1.2-3.4) 05/14/18 06:45 [place] # (Auto) 0.4 (0.1-0.6) 05/14/18 06:45 Eos # (Auto) 0.1 (0.0-0.7) 05/14/18 06:45 Baso # (Auto) 0.02 K/mm3 (0.0-2.0) 05/14/18 06:45 Sodium 139 mmol/L (132-148) 05/14/18 06:45 Potassium 3.6 mmol/L (3.6-5.0) 05/14/18 06:45 Chloride 109 mmol/L (98-107) H 05/14/18 06:45 Carbon Dioxide 25 mmol/L (21-33) 05/14/18 06:45 Anion Gap 9 (10-20) L 05/14/18 06:45 BUN 4 mg/dL (7-21) L 05/14/18 06:45 Creatinine 0.5 mg/dl (0.7-1.2) L 05/14/18 06:45 Est GFR ( Amer) > 60 05/14/18 06:45 Est GFR (Non-Af Amer) > 60 05/14/18 06:45 POC Glucose (mg/dL) 106 mg/dL (65-110) 05/13/18 13:01 Random Glucose 80 mg/dL (70-110) 05/14/18 06:45 Calcium 8.7 mg/dL (8.4-10.5) 05/14/18 06:45 Phosphorus 2.9 mg/dL (2.5-4.5) 05/14/18 06:45 Magnesium 1.6 mg/dL (1.7-2.2) L 05/14/18 06:45 Iron 99 ug/dL (45-180) 05/13/18 13:30 TIBC 385 ug/dL (265-497) 05/13/18 13:30 % Saturation 26 % (20-55) 05/13/18 13:30 Total Bilirubin 0.5 mg/dL (0.2-1.3) 05/14/18 06:45 AST 35 U/L (14-36) 05/14/18 06:45 ALT 39 U/L (7-56) 05/14/18 06:45 Alkaline Phosphatase 86 U/L (38-126) 05/14/18 06:45 Troponin I < 0.01 ng/mL 05/13/18 06:20 Total Protein 6.3 g/dL (5.8-8.3) 05/14/18 06:45 Albumin 3.7 g/dL (3.0-4.8) 05/14/18 06:45 Globulin 2.6 gm/dL 05/14/18 06:45 Albumin/Globulin Ratio 1.4 (1.1-1.8) 05/14/18 06:45 Lipase 17 U/L (23-300) L 05/13/18 06:20 Vitamin B12 662 pg/mL (239-931) 05/13/18 13:30 Folate 18.9 ng/mL 05/13/18 13:30 Urine Color Yellow (YELLOW) 05/12/18 16:25 Urine Appearance Clear (CLEAR) 05/12/18 16:25 Urine pH 7.0 (4.7-8.0) 05/12/18 16:25 Ur Specific [place] 1.020 (1.005-1.035) 05/12/18 16:25 Urine Protein Negative mg/dL (<30 mg/dL) 05/12/18 16:25 Urine Glucose (UA) Negative mg/dL (NEGATIVE) 05/12/18 16:25 Urine Ketones Negative mg/dL (NEGATIVE) 05/12/18 16:25 Urine Blood Trace-intact (NEGATIVE) H 05/12/18 16:25 Urine Nitrate Negative (NEGATIVE) 05/12/18 16:25 Urine Bilirubin Negative (NEGATIVE) 05/12/18 16:25 Urine Urobilinogen 0.2 E.U./dL (<1 E.U./dL) 05/12/18 16:25 Ur Leukocyte Esterase Negative Pérez/uL (NEGATIVE) 05/12/18 16:25 Urine RBC 0 - 2 /hpf (0-2) 05/12/18 16:25 Urine WBC 0 - 2 /hpf (0-6) 05/12/18 16:25 Ur Epithelial Cells Many /hpf (0-5) H 05/12/18 16:25 Urine Bacteria Trace /hpf (NONE) 05/12/18 16:25 Urine HCG, Qual Negative (NEGATIVE) 05/14/18 08:00 Salicylates < 1 mg/dL (2.0-20.0) L 05/12/18 16:25 Urine Opiates Screen Negative (NEGATIVE) 05/12/18 16:25 Urine Methadone Screen Negative (NEGATIVE) 05/12/18 16:25 Acetaminophen < 10.0 ug/ml (10.0-20.0) L 05/12/18 16:25 Ur Barbiturates Screen Negative (NEGATIVE) 05/12/18 16:25 Ur Phencyclidine Scrn Negative (NEGATIVE) 05/12/18 16:25 Ur Amphetamines Screen Negative (NEGATIVE) 05/12/18 16:25 U Benzodiazepines Scrn Negative (NEGATIVE) 05/12/18 16:25 U Oth Cocaine Metabols Negative (NEGATIVE) 05/12/18 16:25 U Cannabinoids Screen Positive (NEGATIVE) H 05/12/18 16:25 Alcohol, Quantitative < 10 mg/dL (0-10) 05/12/18 16:25 Hepatitis A IgM Ab Negative (NEGATIVE) 05/13/18 13:30 Hep Bs Antigen Negative (NEGATIVE) 05/13/18 13:30 Hep B Core IgM Ab Negative (NEGATIVE) 05/13/18 13:30 Hepatitis C Antibody Reactive (NEGATIVE) 05/13/18 13:30 Attending/Attestation - Attestation I have personally seen and examined this patient.: Yes I have fully participated in the care of the patient.: Yes I have reviewed all pertinent clinical information, including history, physical exam and plan: Yes Notes (Text): Agree with above EGD with gastritis, asymptomatic bradycardia Hemodynamically stable on discharge; no other complaints offered Instructed to follow up as outpt with her PMD
--- NOTE | 2018-05-14 22:43 | CON ---
DATE OF CONSULTATION: 05/14/2018 REQUESTING PHYSICIAN: Dr. Wilkerson REASON FOR CONSULTATION: Lightheadedness, bradycardia. HISTORY: This is a 22-year-old woman with a complex list of problems including history of heroin abuse, tobacco abuse, alcohol abuse, hepatitis C, hepatitis A, and pancreatitis, who presented to the emergency room complaining of retrosternal and abdominal discomfort. With intense pain, she was noted be bradycardic. She was diaphoretic and nauseated in the emergency room. She had a second episode occur after phlebotomy. She has continued to have intermittent abdominal pain and has had intermittent associated bradycardia. She has had no signs of AV block or non-conducted beats. She denies any prior syncope. She has had a long history of substance abuse. She has also been bothered by dysmenorrhea. PAST MEDICAL HISTORY: Notable for the problems mentioned above. PAST SURGICAL HISTORY: She underwent an in 2011. FAMILY HISTORY: Both parents are alive and healthy. SOCIAL HISTORY: She smokes a pack per day for many years. She also smokes marijuana regularly and drinks heavily. She has used heroin in the past. MEDICATIONS AT HOME: Suboxone, Zoloft, Vistaril, and gabapentin. ALLERGIES: NONE. REVIEW OF SYSTEMS: A 10-point review of systems is notable only for the problems mentioned above. PHYSICAL EXAMINATION: GENERAL: She is a thin young woman. VITAL SIGNS: Blood pressure is 150/80 with a pulse of 52 and sinus. Respirations 16. She is afebrile. HEENT: Normocephalic, atraumatic. NECK: Supple. No JVD noted. CHEST: Few scattered rhonchi heard. HEART: PMI normal position. No pathological murmurs or gallops noted. ABDOMEN: Soft with mild diffuse tenderness. Bowel sounds are present. EXTREMITIES: No clubbing, cyanosis, edema. SKIN: Warm and dry. PSYCHIATRIC: Mild anxiety, otherwise normal mood and affect. NEUROLOGIC: Alert and oriented x3. No gross motor or sensory deficits present. DIAGNOSTIC DATA: Potassium is 3.6. BUN and creatinine are 4 and 0.5. White count 7.9, hemoglobin and hematocrit 11.7 and 36.0 with platelet count 246,000. Chest x-ray was unremarkable. Electrocardiogram reveals sinus bradycardia with a rightward axis. CT of the abdomen reveals a left ovarian cyst and some fluid in the cul-de-sac suggestive of a recent cyst rupture. Abdominal ultrasound reveals mild fatty liver with mild intrahepatic biliary duct dilatation. IMPRESSION: 1. Transient bradycardia in association with noxious stimuli or pain, appears most consistent with vasovagal event. Doubt any significant cardiac pathology. 2. Polysubstance abuse, obviously major problem. RECOMMENDATIONS: At this time, no further workup appears necessary. During observation on telemetry, she exhibited no evidence of any more complicated conduction issues. Substance abuse abstinence was recommended. From a cardiac standpoint, she is stable for discharge home. Thank you for this consultation. Aníbal Patel MD
[2018-05-15] MEDS ORDERED: Pantoprazole 40 mg EC Tab PO SCH (07:30)
== END 2018-05-14 16:41 | disposition home or self-care (01) ==
LOC: ED 15:06 → ERH 18:10 → 2RNO 20:21
PROVIDERS: ADMIT Hospitalist; ATTEND Hospitalist
DX: R00.1 Bradycardia, unspecified (principal); K29.70 Gastritis, unspecified, without bleeding; F17.210 Nicotine dependence, cigarettes, uncomplicated; F12.90 Cannabis use, unspecified, uncomplicated; K86.1 Other chronic pancreatitis; K44.9 Diaphragmatic hernia without obstruction or gangrene; K21.9 Gastro-esophageal reflux disease without esophagitis
CPT/HCPCS: 36415; 43239; 71045; 74177; 76700; 80053; 80074; 81001; 82607; 82746; 82948; 83540; 83550; 83690; 83735; 84100; 84484; 84703; 85025; 87521; 88305; 88342; 93005; 96361; 96372; 96374; 96375; 96376; 99285; C9113; G0378; G0480; J1650; J2001; J2405; J2704; J3010; J7030; J7040; Q9967